=== PATIENT | female | born 1940 | race Caucasian/White ===

== ENCOUNTER 2017-06-16 09:46 | Inpatient (IN) ==
--- OUTSIDE RECORDS SUMMARY | 2017-06-16 10:04 | External Medical Summary ---
:1940 Author Organization [employer] Care Team Providers Name Role Phone Sarahy Garay Provider Role Unavailable Allergies No Known Allergies Problems Problem Type Condition Code Onset Dates Condition Status Problem Orthostatic hypotension I95.1 Active Problem Parkinson disease G20 Active Medications No Known Medications Results No Known Results Summary Purpose eClinicalWorks Submission
--- NOTE | 2017-06-16 10:09 | Emergency Department Report ---
Altered Mental Status HPI - General Chief Complaint: Altered Mental Status Stated Complaint: Altered LOC Time Seen by Provider: 06/16/17 09:57 Source: patient, EMS, RN notes reviewed, old records reviewed Mode of arrival: EMS Limitations: altered mental status - History of Present Illness HPI narrative: 77yo woman presented to the ER for evaluation of AMS. Pt was awake and alert but 'unresponsive' at her NH this AM during medication administration. EMS was called to transport pt for further evaluation. As soon as pt was loaded into the rig, pt opened her eyes and began to converse with the school nurse. Pt repeatedly states that she "does not have Parkinson's". She states that her main complaint today is nausea, which she attributes to being given Parkinson's meds in error. When questioned about her shaking, pt states that it is a side-effect of coming off of the Parkinson's medicine. MD complaint: altered mental status Onset (ago): minute(s) Timing confirmed by: caregiver Severity: severe Context: other (Dementia) Associated symptoms: nausea/vomiting - Related Data Home Medications Medication Instructions Recorded Confirmed Acetaminophen 650 mg PO Q4H PRN 06/16/17 06/16/17 Bisacodyl Supp [Dulcolax] 10 mg RECTALLY DAILY 06/16/17 06/16/17 Carbidopa/Levodopa 25/100 MG 2 tab PO 5XD 06/16/17 06/16/17 [Sinemet] Cholecalciferol (Vitamin D3) 1,000 unit PO DAILY 06/16/17 06/16/17 [Vitamin D3] Cholecalciferol (Vitamin D3) 2,000 mg PO DAILY 06/16/17 06/16/17 [Vitamin D3] Cyanocobalamin (Vitamin B-12) 500 mcg SL DAILY 06/16/17 06/16/17 [Vitamin B-12] Docusate Sodium [Colace] 100 mg PO BID PRN 06/16/17 06/16/17 Donepezil [Aricept] 5 mg PO DAILY 06/16/17 06/16/17 Escitalopram [Lexapro] 20 mg PO DAILY 06/16/17 06/16/17 Furosemide [Lasix 20 mg Tab] 20 mg PO DAILY 06/16/17 06/16/17 Guaifenesin Oral Liq [Robitussin] 100 mg PO Q4H PRN 06/16/17 06/16/17 LORazepam [Ativan] 0.5 mg PO TID 06/16/17 06/16/17 Levothyroxine Sodium 50 mcg PO DAILY 06/16/17 06/16/17 Mag Hydrox/Aluminum Hyd/Simeth 30 ml PO TID PRN 06/16/17 06/16/17 [Alum-Mag Hydroxide-Simeth Liq] Magnesium Hydroxide [Milk of 30 ml PO Q12H PRN 06/16/17 06/16/17 Magnesia] Midodrine [Proamatine] 10 mg PO TID 06/16/17 06/16/17 Peg 3350 238 G Bottle [Miralax] 17 gm PO DAILY PRN 06/16/17 06/16/17 Peg 3350 238 G Bottle [Miralax] 17 gm PO Q2D 06/16/17 06/16/17 Pimavanserin Tartrate [Nuplazid] 34 mg PO DAILY 06/16/17 06/16/17 Solifenacin Succinate [Vesicare] 5 mg PO DAILY 06/16/17 06/16/17 Trazodone HCl 75 mg PO HS 06/16/17 06/16/17 Allergies Allergy/AdvReac Type Severity Reaction Status Date / Time codeine Allergy Unknown Verified 06/16/17 10:20 mirtazapine [From Remeron] Allergy Unknown Verified 06/16/17 10:20 pramipexole [From Mirapex] Allergy Unknown Verified 06/16/17 10:20 Sulfa (Sulfonamide Allergy Unknown Verified 06/16/17 10:20 Antibiotics) Review of Systems All systems: reviewed and negative except as stated Gastrointestinal: Reports: as per HPI, nausea. Denies: abdominal pain, vomiting , diarrhea, constipation, hematemesis, melena, hematochezia PFS Patient Stated Medical History Paralysis Yes: agitans Parkinson's Disease Yes Cardiac Arrhythmia Yes: irregular heart beat Hypotension Yes Sleep Apnea No Depression Yes Clinic Medical History (Last Reviewed 08/31/16 @ 14:54 by KOLE Kwong) Parkinson's disease (Chronic Medical) Medical History Updates: Dementia Surgical History: Cholecystectomy. Hysterectomy. cataracts Family History: Family History (Last Reviewed 05/31/17 @ 13:20 by KOLE Kwong) Mother No problems noted. Father No problems noted. - Social History Smoking status: Never smoker second hand exposure: No Substance use type: does not use Alcohol intake frequency: does not drink Does patient use chewing tobacco?: No Physical Exam - Limitations Limitations: altered mental status - General General appearance: alert, in no apparent distress, obese - Head Head exam: atraumatic, normocephalic, normal inspection - Eye Eye exam: Present: normal appearance, PERRL, EOMI, other (Arcus senilis). Absent: scleral icterus - ENT ENT exam: Present: normal exam, normal oropharynx, mucous membranes moist, normal external ear exam - Neck Neck exam: Present: normal inspection, full ROM, trachea midline. Absent: tenderness, lymphadenopathy - Chest Chest inspection: Present: normal inspection, symmetric chest wall rise. Absent : tenderness, rash - Respiratory Respiratory exam: Present: normal lung sounds bilaterally. Absent: respiratory distress, wheezes, stridor, prolonged expiratory phase, crackles - Cardiovascular Cardiovascular exam: Present: regular rate, normal rhythm, normal heart sounds. Absent: rubs, gallop, clicks - Abdominal Exam Abdominal exam: Present: soft, normal bowel sounds. Absent: distention, tenderness, guarding, rebound, rigidity - Extremities Exam Extremities exam: Present: normal inspection, full ROM, normal capillary refill. Absent: tenderness, pedal edema - Skin Skin exam: Present: warm, dry, intact, other (AKs, Sebhorrheic keratoses). Absent: rash - Neurological Exam Neurological exam: Present: alert, CN II-XII intact, other (Constant, baseline tremor). Absent: oriented X3, normal gait, reflexes normal - Psychiatric Psychiatric exam: Present: agitated, flat affect Course - Consultations Consultation #1: [facility]: Will review pts chart and dx and determine whether pt is a good candidate for [facility]. After review, pt does meet criteria. However, DPOA is not interested in [facility]; did not listen to the screener/summarily hung up on her. Time: 12:17 Consultation #2: [facility] (DPSHANDA): After initially declining [facility] eval/placement, physician spoke with DPOA. He is well-aware of pts condition and has been very involved in pts care. He was under the impression that pts physicians were throwing meds at pt and unaware that Dr. Matta, as pts PCM, is/should be managing pts care. He wants all the relevant physicians to be speaking to each other. He wants Dr. Parker to see pt more frequently. After discussion regarding [facility], and reassuring him that it is not an inpt lock-down psych facility, he agrees to place pt in [facility] for acute med stabilization. Pt would like an update. Time: 12:50 Vital Signs Temperature 98.2 F 06/16/17 09:50 Pulse Rate 79 06/16/17 09:50 Respiratory Rate 19 06/16/17 09:50 Blood Pressure 161/67 H 06/16/17 09:50 Pulse Oximetry 93 06/16/17 09:50 Temperature 98.2 F 06/16/17 09:50 Pulse Rate 79 06/16/17 09:50 Respiratory Rate 19 06/16/17 09:50 Blood Pressure 161/67 H 06/16/17 09:50 Pulse Oximetry 93 06/16/17 09:50 Altered Mental Status - [facility] Narrative Medical decision making narrative: Pt with acute delusions regarding her Parkinson's; does not believe that she has it and thinks that her meds are poisoning her. After evaluation, [facility] was consulted for possible placement. DPOA is now in agreement with acute placement/stabilization. Will txfr pt to [facility]. - Differential Diagnosis Likely: altered mental status, delirium, dementia, hypoglycemia, hyponatremia - Medical Records Attestation: I reviewed the patient's medical records. - Lab Data Attestation: I reviewed the patient's lab results. Result diagrams: 06/16/17 10:15 06/18/17 07:03 - Radiology Data Attestation: I reviewed the patient's radiology results. CXR: IMPRESSION: No acute cardiopulmonary abnormality. Disposition Clinical Impression: Dementia Qualifiers: Dementia type: Parkinson's disease Dementia behavioral disturbance: with behavioral disturbance Qualified Code(s): G20 - Parkinson's disease Disposition: 64 To [facility] [place], operated by [facility] Condition: Stable Time of Disposition: 13:03 - Seen By: physician
--- NOTE | 2017-06-16 10:29 | XRay Report ---
Indication: 'AMS' PROCEDURE: XR chest 1V: Encounter: Initial Comparison: None FINDINGS: The lungs are clear. There is no abnormal airspace opacity, pleural effusion or pneumothorax identified. The heart size is at the limits of normal to mildly enlarged. The pulmonary vasculature and mediastinum are within normal limits. No significant skeletal abnormality is seen. IMPRESSION: No acute cardiopulmonary abnormality. .
[2017-06-16 14:27] VITALS: BMI 31.6
[2017-06-16] MEDS ORDERED: LORazepam 0.5 MG TABLET PO PRN (15:19)
[2017-06-16] MEDS ORDERED: ACETAMINOPHEN 325 MG TABLET PO PRN (15:21)
[2017-06-16] MEDS ORDERED: TRAZODONE 50 MG TABLET PO PRN (15:21)
[2017-06-16] MEDS ORDERED: POLYETHYL GLYCOL 3350 17gm PACKET PO PRN (15:21)
[2017-06-16] MEDS ORDERED: DOCUSATE SODIUM 100 MG CAPSULE PO PRN (15:21)
[2017-06-16] MEDS ORDERED: MAG-AL + SIM ORAL LIQUID 30ml PO PRN (16:53)
[2017-06-17] MEDS: LEVOTHYROXINE 50 MCG TABLET PO SCH ×2 (05:43→05:46)
[2017-06-17] MEDS ORDERED: PIMAVANSERIN TARTRATE 17 MG PO SCH (09:00)
[2017-06-17] MEDS: FUROSEMIDE 20 MG TABLET PO SCH (11:11)
[2017-06-17] MEDS: SOLIFENACIN 5mg TABLET PO SCH (11:11)
--- NOTE | 2017-06-17 11:28 | History & Physical Report ---
History of Present Illness Date: 06/17/17 Chief complaint: psychosis HPI: Lucia Joe is a 77-year-old female patient of Dr. Matta who currently resides at [facility] facility. Due to her dementia, she is a poor historian. The majority of the history is obtained from prior medical records, nursing notes, EMS records and ED records. It was reported that about 3 weeks ago she underwent some medication changes including the discontinuation of Seroquel with the initiation of Nuplazid. Since that time, penitentiary staff reports increased paranoia with visual hallucinations. She has been refusing to eat or take her medications as she believes the staff is trying to kill her and poison her. Yesterday morning, 06/16/17, the penitentiary staff found her awake but "unresponsive". EMS was dispatched to the penitentiary and determined she should have further evaluation. Upon loading her in the rig, she opened her eyes and began to converse with the legal examiner. She was brought to [facility] for further evaluation. Review of prior records indicates a history of frequent UTIs with the most recent being in 04/2017 which revealed pansensitive E. coli and was treated with amoxicillin 500mg BID. Labs in the ED revealed normal WBC with hypernatremia (Na 148) and mild hyperglycemia. TSH was slightly elevated at 5.12. UA and drug screen were both negative. Due to her psychosis with delusions and paranoia, she was [facility] for further [facility] evaluation and care. The hospitalist service was consulted for medical management. On exam, she is seen while sitting in the day room in a recliner. She states that she is "going into shock" and reports that she is allergic to ativan. Review of medical records indicates that she has previously been on ativan TID which has been decreased upon her admission. She denies any other specific complaints other than feeling hot. No chest pain, shortness of breath, abdominal pain, nausea, vomiting or dysuria. She can be redirected in conversation but ultimately complains of being in shock again and requesting to go to her room. She is breathing easily on room air and in no apparent distress. Review of Systems ROS unobtainable: due to mental status - Constitutional Constitutional: Present: weakness. Absent: chills, fever(s) - EENMT Eyes: Absent: loss of vision Nose: Absent: nosebleeds Mouth/Throat: Absent: sore throat - Cardiovascular Cardiovascular: Absent: chest pain, syncope Vascular: Absent: pallor of an extermity, pedal edema - Respiratory Respiratory: Absent: cough, dyspnea - Gastrointestinal Gastrointestinal: Present: constipation. Absent: abdominal pain, nausea, vomiting - Genitourinary Genitourinary: Absent: dysuria, flank pain - Musculoskeletal Musculoskeletal: Absent: back pain, deformity - Integumentary/Breasts Integumentary: Absent: rash - Neurological Neurological: Present: tremor(s), weakness - Psychiatric Psychiatric: Present: abnormal sleep pattern, behavioral changes, paranoia, visual hallucinations - Endocrine Endocrine: Absent: palpitations - Hematologic/Lymphatic Hematologic/Lymphatic: Absent: easy bruising Past Medical History Medical History Updates: Dementia. Parkinson's disease. Urinary incontinence. Generalized weakness. Chronic pain. Allergic rhinitis. Hypothyroidism. Hypotension. Major depressive disorder. Seborrheic dermatitis. Insomnia. Paralysis agitans. Surgical History: Cholecystectomy. Hysterectomy. Cataracts. Family History: Unable to obtain due to patient's dementia and poor historian. Family History: As Above - Social History Smoking status: Never smoker Substance use type: does not use Alcohol intake frequency: does not drink Housing: penitentiary Household members: none Current occupational status: retired Social history: PCP - Dr. Matta. Neuro - Dr. Parker. Medications Home Medications Medication Instructions Recorded Confirmed Type Acetaminophen 650 mg PO Q4H PRN 06/16/17 06/16/17 History Bisacodyl Supp [Dulcolax] 10 mg RECTALLY DAILY 06/16/17 06/16/17 History Carbidopa/Levodopa 25/100 MG 2 tab PO 5XD 06/16/17 06/16/17 History [Sinemet] Cholecalciferol (Vitamin D3) 1,000 unit PO DAILY 06/16/17 06/16/17 History [Vitamin D3] Cholecalciferol (Vitamin D3) 2,000 mg PO DAILY 06/16/17 06/16/17 History [Vitamin D3] Cyanocobalamin (Vitamin B-12) 500 mcg SL DAILY 06/16/17 06/16/17 History [Vitamin B-12] Docusate Sodium [Colace] 100 mg PO BID PRN 06/16/17 06/16/17 History Donepezil [Aricept] 5 mg PO DAILY 06/16/17 06/16/17 History Escitalopram [Lexapro] 20 mg PO DAILY 06/16/17 06/16/17 History Furosemide [Lasix 20 mg Tab] 20 mg PO DAILY 06/16/17 06/16/17 History Guaifenesin Oral Liq [Robitussin] 100 mg PO Q4H PRN 06/16/17 06/16/17 History LORazepam [Ativan] 0.5 mg PO TID 06/16/17 06/16/17 History Levothyroxine Sodium 50 mcg PO DAILY 06/16/17 06/16/17 History Mag Hydrox/Aluminum Hyd/Simeth 30 ml PO TID PRN 06/16/17 06/16/17 History [Alum-Mag Hydroxide-Simeth Liq] Magnesium Hydroxide [Milk of 30 ml PO Q12H PRN 06/16/17 06/16/17 History Magnesia] Midodrine [Proamatine] 10 mg PO TID 06/16/17 06/16/17 History Peg 3350 238 G Bottle [Miralax] 17 gm PO DAILY PRN 06/16/17 06/16/17 History Peg 3350 238 G Bottle [Miralax] 17 gm PO Q2D 06/16/17 06/16/17 History Pimavanserin Tartrate [Nuplazid] 34 mg PO DAILY 06/16/17 06/16/17 History Solifenacin Succinate [Vesicare] 5 mg PO DAILY 06/16/17 06/16/17 History Trazodone HCl 75 mg PO HS 06/16/17 06/16/17 History Allergies Allergy/AdvReac Type Severity Reaction Status Date / Time codeine Allergy Unknown Verified 06/16/17 10:20 mirtazapine [From Remeron] Allergy Unknown Verified 06/16/17 10:20 pramipexole [From Mirapex] Allergy Unknown Verified 06/16/17 10:20 Sulfa (Sulfonamide Allergy Unknown Verified 06/16/17 10:20 Antibiotics) Exam Vital Signs: Temperature 96.8 F 06/17/17 06:00 Pulse Rate 76 06/17/17 06:00 Respiratory Rate 16 06/17/17 06:00 Blood Pressure 147/69 H 06/17/17 06:00 Pulse Oximetry 93 06/17/17 06:00 Height/Weight/BMI: Height 5 ft 6 in Weight 195 lb 15.855 oz Body Mass Index 31.6 Comments: Sitting in recliner in day room. - Constitutional Present: no acute distress, well nourished, well developed, obese, cooperative, agitated - Routine HEENT Exam Head: Present: normocephalic, atraumatic Eye: Present: PERRL. Absent: conjunctival icterus ENT: Present: mucous membranes dry, oropharynx clear - Routine Neck Exam Present: supple, full ROM, trachea midline - Routine Chest/Breast/Axilla Exam Chest wall: Absent: pacemaker - Routine Respiratory Exam Present: CTA bilaterally. Absent: respiratory distress, wheezes - Routine Cardiovascular Exam Present: RRR, S1, S2 - Routine Abdominal Exam Present: soft, normoactive bowel sounds, non tender - Routine Extremities Exam Present: no edema, pulses intact - Routine Back/Spine/Pelvis Exam Back/Spine: Present: kyphosis. Absent: vertebral tenderness - Routine Skin Exam Present: intact, dry, warm Comments: Afebrile. - Routine Neurological Exam Present: alert, moving all extremities, hearing grossly intact, tremors - Routine Psychiatric Exam Present: visual hallucinations, cooperative, agitated, paranoid Results - Labs CBC & Chem 7: 06/16/17 10:15 06/16/17 10:15 Assessment and Plan Assessment and Plan: Assessment: Psychosis with acute delirium and paranoia. Hypernatremia, present on admission. Dementia. Parkinson's disease. Urinary incontinence. Generalized weakness. Chronic pain. Allergic rhinitis. Hypothyroidism. Hypotension. Major depressive disorder. Seborrheic dermatitis. Insomnia. Paralysis agitans. Plan - 06/17/17: Agree with [facility] to [facility] for further psychiatric care per Dr. Reed and team. Hospitalist service consulted for medical management. Provide safe and supportive environment. Evaluation in ED revealed hypernatremia (Na 148). Encourage oral intake. Will recheck on 06/18/17. Slightly elevated TSH at 5.12. Possibly due to patient refusing meds. Recommend continuing to monitor as outpatient with recheck in 4-6 weeks. Continue home Synthroid. Continue home medications. Monitor blood pressure closely. Recheck labs periodically throughout admission to monitor blood counts, electrolytes and renal function. Upon discharge, patient's care will be returned to her PCP, Dr. Matta. Patient is a DNR code. Resuscitation Status: Do Not Resuscitate - Time spent with patient Time with patient PN: 50 minutes - Physician Narrative Physician: Chintan Abraham MD Narrative: Date: 06/17/17 Time: 1119 Have independently interviewed and examined pt. Chart reviewed. Case discussed with my PA. Above care plan developed with my supervision; agree with above note. Admitted to [facility] secondary to increasing paranoia. Resting in bed. Paranoid about my visit. Resistive to engage in conversation. Reports feels miserable. Lungs: decreased, no distress CV: regular MSE: awake, paranoid and apprehensive Plan: Agree with admission of patient to [facility] for intensive inpatient psychiatric treatment of her psychosis. Psychiatry to manage and adjust psychoactive medications. Continue with chronic medical medications from outpatient setting. Provide safe supportive environment for patient. Avoid antihypertensive so as not to exacerbate her hypotension. Medically stable for [facility] [place] floor activities. Hospital Course Summary Disclaimer: The visit summary below is not to be considered part of the above Progress Note. Hospital Course: Plan - 06/17/17: Agree with admission to [facility] unit for further psychiatric care per Dr. Reed and team. Hospitalist service consulted for medical management. Provide safe and supportive environment. Evaluation in ED revealed hypernatremia (Na 148). Encourage oral intake. Will recheck on 06/18/17. Slightly elevated TSH at 5.12. Possibly due to patient refusing meds. Recommend continuing to monitor as outpatient with recheck in 4-6 weeks. Continue home Synthroid. Continue home medications. Monitor blood pressure closely. Recheck labs periodically throughout admission to monitor blood counts, electrolytes and renal function. Upon discharge, patient's care will be returned to her PCP, Dr. Matta. Patient is a DNR code.
[2017-06-17] MEDS: BISACODYL 10 MG SUPPOSITORY RECTALLY SCH (17:20)
--- NOTE | 2017-06-17 18:30 | 24 Hour Neuropsychiatic Eval ---
Date of Admission: 06/16/17 13:36 Chief complaint: "I'm not sure" History of Present Illness: Patient is a 77-year-old female who was admitted to [facility] on 06/16/17 for psychiatric evaluation and stabilization due to increasing behaviors at her care facility including increasing paranoia to the point that she has been refusing to eat and take medications for several days. Patient was recently switched from Seroquel to Nuplazid for treatment of Parkinson's psychosis (~3 weeks ago). Symptoms have increased since that time. GA also reported patient having VH. The day prior to admit, patient appeared "unresponsive" to [facility] staff, who called EMS. Patient then began interacting with supervisor of guidance and testing. Per hospitalist: "Review of prior records indicates a history of frequent UTIs with the most recent being in 04/2017 which revealed pansensitive E. coli and was treated with amoxicillin 500mg BID. Labs in the ED revealed normal WBC with hypernatremia (Na 148) and mild hyperglycemia. TSH was slightly elevated at 5.12. UA and drug screen were both negative. On exam, she is seen while sitting in the day room in a recliner. She states that she is "going into shock " and reports that she is allergic to ativan. Review of medical records indicates that she has previously been on ativan TID which has been decreased upon her admission. She denies any other specific complaints other than feeling hot. No chest pain, shortness of breath, abdominal pain, nausea, vomiting or dysuria. She can be redirected in conversation but ultimately complains of being in shock again and requesting to go to her room. She is breathing easily on room air and in no apparent distress." Patient is initially seen in dayroom but soon requests to go back to her room. She did spend the majority of the AM in the dayroom per nursing request. Patient has a significant tremor in all extremities due to Parkinson's, and masked facies. She has significant thought delay and thus interview is difficult. She is minimally cooperative and frequently states "I don't know" though it is not clear whether this is due to dementia or being guarded. She does say that she "seems to be allergic to Ativan" and that "it makes her throw up." Patient was on scheduled Ativan which was held on admission as it was reported that she was not taking her medications. Patient is oriented to person , date, location. She describes her mood as "mariaa down." She is not able to tell me about any other psychiatric symptoms ("I don't know/remember") but she does deny SI ("That's God's duty") and HI. [facility] Patient Stated Medical History Paralysis Yes: agitans Parkinson's Disease Yes Cardiac Arrhythmia Yes: irregular heart beat Hypotension Yes Sleep Apnea No Depression Yes Medical History Updates: Dementia. Parkinson's disease. Urinary incontinence. Generalized weakness. Chronic pain. Allergic rhinitis. Hypothyroidism. Hypotension. Major depressive disorder. Seborrheic dermatitis. Insomnia. Paralysis agitans. Surgical History: Cholecystectomy. Hysterectomy. Cataracts. Family History: Family History (Last Reviewed 05/31/17 @ 13:20 by Anuja Lutz [place]) Mother No problems noted. Father No problems noted. Unable to obtain family hx from patient. - Social History Smoking status: Never smoker second hand exposure: No Substance use type: does not use Alcohol intake frequency: does not drink Housing: alf Household members: none Current occupational status: retired Does patient use chewing tobacco?: No Social history: Strengths: Has placement, DPOA, able to verbalize needs. Review of Systems ROS unobtainable: due to mental status - EENMT Nose: Absent: nosebleeds Mouth/Throat: Absent: sore throat - Cardiovascular Vascular: Absent: pallor of an extermity, pedal edema Mental Status Exam Vitals: Last Vital Signs Temp 96.6 F L 06/17/17 14:00 Pulse 63 06/17/17 14:00 Resp 16 06/17/17 14:00 BP 127/69 06/17/17 14:00 Pulse Ox 96 06/17/17 14:00 Height: 1.68 m Weight: 88.9 kg - Mental Status Exam Muscle Strength/Tone: Other (Parkinsonian) Dressing: Casual Grooming: Fair Attitude: Guarded, Suspicious Motor Activity: Retardation, Tremors (in all extremities) Eye Contact: Poor Speech: Slowed Volume: Soft Rhythm: Mumbled, Paucity of Language Sensory: Alert Orientation: Disoriented to situation, Oriented to person, Oriented to place, Oriented to time Mood: Other ("Mariaa down") Affect: Blunted (likely has masked facies d/t Parkinson's) Rate of Thoughts: Delayed Thought Organization: Blocking (possible), [place], Other (Significant thought latency) Associations: Illogical Abstract Reasoning: Poor abstract reasoning Thought Content: Delusions, Helplessness, Paranoia (per nursing staff), Somatic Concerns Perception/Psychotic: Psychotic (VH reported by [facility]) Language: Other (Unclear) Fund of Knowledge: Other (Believed to be decreased from baseline, unable to fully assess) Memory: Poor-recent Suicidal Ideation: Denies (though exhibiting self-harming behaviors by refusing PO intake) Homicidal Ideation: Denies Insight: Impaired Judgement: Impaired Impulse Control: Poor - Laboratory Result Diagrams: 06/16/17 10:15 06/16/17 10:15 Assessment and Plan (1) Psychosis due to Parkinson's disease Problem details: R/O MDD, severe, with psychotic features R/O Parkinson's dementia or other MNCD Current visit: Yes Status: Acute (2) Parkinson's disease Current visit: No Status: Chronic (3) Catatonia Current visit: Yes Status: Acute Agree with admission to [facility] for psychiatric evaluation and stabilization. Maintain safety and elopement precautions. Standard labs on admission: CBC, CMP, TSH, UA, Vitamin B12 and folate. Have consulted hospitalist for optimization of medical comorbidities. Will obtain further collateral from NH facility, family/support. For now, will restart patient's home med Nuplazid at 17mg daily as patient has not been taking this medication consistently. Will also schedule Seroquel 12.5mg PO BID and monitor response. Will schedule Ativan 0.5mg PO BID to address catatonic symptoms and carefully monitor PO intake. If patient is adherent with meds, may need to address depression as well.
[2017-06-17] MEDS: LORazepam 0.5 MG TABLET PO SCH ×2 (21:50→22:33)
[2017-06-17] MEDS: QUETIAPINE 200 MG TABLET PO SCH ×2 (21:52→22:33)
[2017-06-18] MEDS: LEVOTHYROXINE 50 MCG TABLET PO SCH ×2 (07:31→07:39)
[2017-06-18] MEDS ORDERED: NUPLAZID 17 MG PO SCH (09:00)
[2017-06-18] MEDS: SOLIFENACIN 5mg TABLET PO SCH ×2 (11:55→13:29)
[2017-06-18] MEDS: BISACODYL 10 MG SUPPOSITORY RECTALLY SCH (11:56)
[2017-06-18] MEDS: FUROSEMIDE 20 MG TABLET PO SCH ×2 (11:56→13:29)
[2017-06-18] MEDS: LORazepam 0.5 MG TABLET PO SCH ×3 (12:05→15:09)
[2017-06-18] MEDS: QUETIAPINE 25 MG TABLET PO SCH ×2 (12:06→13:27)
--- NOTE | 2017-06-18 15:42 | Neuropsych Progress Note ---
[facility] Subjective Date: 06/18/17 - Sujective/Severity of Illness Medications: Acetaminophen (Tylenol) 650 mg PO Q4H PRN PRN Reason: Pain Last Admin: 06/17/17 02:16 Dose: 650 mg Al Hydroxide/Mg Hydroxide (Maalox Plus) 30 ml PO TID PRN PRN Reason: Indigestion Bisacodyl (Dulcolax) 10 mg RECTALLY DAILY [facility] Last Admin: 06/18/17 11:56 Dose: Not Given Docusate Sodium (Colace) 100 mg PO BID PRN PRN Reason: Constipation Furosemide (Lasix 20 Mg Tab) 20 mg PO DAILY [facility] Last Admin: 06/18/17 13:29 Dose: Not Given Levothyroxine Sodium (Synthroid) 50 mcg PO ACB [facility] Last Admin: 06/18/17 07:39 Dose: Not Given Lorazepam (Ativan) 0.5 mg PO Q6H PRN PRN Reason: Extreme agitation Last Admin: 06/17/17 02:16 Dose: 0.5 mg Lorazepam (Ativan Inj) 0.5 mg IM Q6H PRN PRN Reason: Extreme agitation Lorazepam (Ativan) 0.5 mg PO TID [facility] Last Admin: 06/18/17 15:09 Dose: Not Given Magnesium Hydroxide (Mom) 30 ml PO Q12H PRN PRN Reason: Constipation Pom-Nuplazid ( Pimavanserin) 17 Mg Tablet 1 each PO DAILY [facility] Last Admin: 06/18/17 13:26 Dose: Not Given Polyethylene Glycol (Miralax) 17 gm PO DAILY PRN PRN Reason: Constipation Quetiapine Fumarate (Seroquel) 12.5 mg PO BID [facility] Last Admin: 06/18/17 13:27 Dose: Not Given Solifenacin (Vesicare) 5 mg PO DAILY [facility] Last Admin: 06/18/17 13:29 Dose: Not Given Trazodone HCl (Desyrel) 75 mg PO HS PRN PRN Reason: Insomnia Subjective: Patient seen and chart reviewed. Case discussed with treatment team. On interview, patient is sitting in chair in dayroom. She has been waiting to speak with the doctor but doesn't make much logical sense. She perseverates on the phrase, "I'm a serotonin patient." When asked what that means, she states, "I need slow sips of water." She does not answer other interview questions. Patient has been taking sips of water but refusing mood and most medications. She continues to appear catatonic. Patient has not had any overt aggression. Patient slept 4.5 hours overnight. VSS. Psychotropic PRNs required in the past 24 hours: none. I spoke with son/DPSHANDA Shaver re: patient care. He initially said, "My mom can't be not taking medications because the nurses at [facility] were supposed to be giving them to her." Clarified with him that she is refusing food and most medications. He is aware that patient has been psychotic and states Dr. Coelho had recently started Nuplazid. Discussed symptoms of catatonia and concern for nutrition as she is refusing PO. Agreed to offer PO Ativan TID and administer IM if she refuses. Once catatonia remits, will focus on PO intake and starting antipsychotic (will not respond well to IM antipsychotics due to severe Parkinson's). Discussed continuing Seroquel/Nuplazid vs. clozaril and he agreed to trial of clozaril starting tonight. Discussed risks/benefits; obtained informed consent. Start Time: 13:00 Stop Time: 13:40 Care: >50% of this visit spent in counseling/coordination care. (discussion of care with son/DPOA) Mental Status Exam Vitals: Last Vital Signs Temp 98.4 F 06/18/17 00:01 Pulse 74 06/18/17 08:00 Resp 20 06/18/17 08:00 BP 148/102 H 06/18/17 08:00 Pulse Ox 96 06/18/17 08:00 Height: 1.68 m Weight: 88.9 kg - Mental Status Exam Muscle Strength/Tone: Rigid, Other (Parkinsonian) Dressing: Casual Grooming: Fair Attitude: Guarded, Suspicious Motor Activity: Retardation, Tremors (in all extremities), Catatonic Eye Contact: Poor Speech: Slowed Volume: Soft Rhythm: Mumbled, Perseveration Orientation: Disoriented to situation, Oriented to person, Oriented to place, Oriented to time Mood: Other ("Mary down") Rate of Thoughts: Delayed Thought Organization: Perseverations, Blocking (possible), [place], Other ( Significant thought latency) Associations: Illogical Abstract Reasoning: Impaired, concrete Thought Content: Delusions, Helplessness, Paranoia (per nursing staff), Somatic Concerns Perception/Psychotic: Psychotic (VH reported by [facility]) Language: Other (Unclear) Fund of Knowledge: Other (Believed to be decreased from baseline, unable to fully assess) Memory: Poor-immediate, Poor-recent Suicidal Ideation: None Homicidal Ideation: None Insight: Impaired Judgement: Impaired Impulse Control: Poor - Laboratory Result Diagrams: 06/16/17 10:15 06/18/17 07:03 Laboratory Results - last 24 hr 06/18/17 06/18/17 07:03 07:03 Turbidity < 20 Sodium 147 H Potassium 4.3 Chloride 110 H Carbon Dioxide 24 Anion Gap 13 BUN 30.0 H Creatinine 1.1 GFR Calculation 48 BUN/Creatinine Ratio 27 H Glucose 100 Hemoglobin A1c 5.6 Calculated Osmolality 288 H Calcium 10.2 Icterus Index < 2 Triglycerides 90 Cholesterol 229 H LDL Cholesterol, Calc 149.0 VLDL Cholesterol 18.0 HDL Cholesterol 62 H Cholesterol/HDL Ratio 3.7 Specimen Hemolysis < 15 Assessment and Plan (1) Psychosis due to Parkinson's disease Problem details: R/O MDD, severe, with psychotic features R/O Parkinson's dementia or other MNCD Current visit: Yes Status: Acute (2) Parkinson's disease Current visit: No Status: Chronic (3) Catatonia Current visit: Yes Status: Acute Agreed upon following plan with son/DPOA: Restart Ativan 1mg PO TID for catatonia. If patient refuses PO, to be given IM. Encourage PO nutrition. Will start clozapine 25mg PO q HS. Will order EKG as well. Hospital Course Summary Disclaimer: The visit summary below is not to be considered part of the above Progress Note. Hospital Course: Plan - 06/17/17: [facility] for further psychiatric care per Dr. Reed and team. Hospitalist service consulted for medical management. Provide safe and supportive environment. Evaluation in ED revealed hypernatremia (Na 148). Encourage oral intake. Will recheck on 06/18/17. Slightly elevated TSH at 5.12. Possibly due to patient refusing meds. Recommend continuing to monitor as outpatient with recheck in 4-6 weeks. Continue home Synthroid. Continue home medications. Monitor blood pressure closely. Recheck labs periodically throughout admission to monitor blood counts, electrolytes and renal function. Upon discharge, patient's care will be returned to her PCP, Dr. Matta. Patient is a DNR code. 06/18/17 Psych: Agreed upon following plan with son/DPOA: Discontinue home Seroquel, Nuplazid. Restart Ativan 1mg PO TID for catatonia. If patient refuses PO, to be given IM. Encourage PO nutrition. Will start clozapine 25mg PO q HS. Will order EKG as well.
[2017-06-18] MEDS ORDERED: LORazepam 0.5 MG TABLET PO SCH (16:39)
[2017-06-18] MEDS: CloZAPine 25 MG TABLET PO SCH (17:15)
[2017-06-18] MEDS ORDERED: LORazepam 1 MG TABLET PO ONE (18:15)
[2017-06-18] MEDS: LORazepam 1 MG TABLET PO SCH (20:38)
[2017-06-19] MEDS: CloZAPine 25 MG TABLET PO SCH ×2 (00:08→20:49)
[2017-06-19] MEDS: LEVOTHYROXINE 50 MCG TABLET PO SCH (07:42)
[2017-06-19] MEDS: BISACODYL 10 MG SUPPOSITORY RECTALLY SCH (16:00)
[2017-06-19] MEDS: FUROSEMIDE 20 MG TABLET PO SCH (16:00)
[2017-06-19] MEDS: LORazepam 1 MG TABLET PO SCH ×4 (16:01→22:41)
[2017-06-19] MEDS: SOLIFENACIN 5mg TABLET PO SCH (16:02)
--- NOTE | 2017-06-19 16:13 | Neuropsych Progress Note ---
[facility] Subjective Date: 06/19/17 - Sujective/Severity of Illness Medications: Acetaminophen (Tylenol) 650 mg PO Q4H PRN PRN Reason: Pain Last Admin: 06/17/17 02:16 Dose: 650 mg Al Hydroxide/Mg Hydroxide (Maalox Plus) 30 ml PO TID PRN PRN Reason: Indigestion Bisacodyl (Dulcolax) 10 mg RECTALLY DAILY [facility] Last Admin: 06/19/17 16:00 Dose: Not Given Clozapine (Clozaril) 25 mg PO HS [facility] Last Admin: 06/19/17 00:08 Dose: Not Given Docusate Sodium (Colace) 100 mg PO BID PRN PRN Reason: Constipation Furosemide (Lasix 20 Mg Tab) 20 mg PO DAILY [facility] Last Admin: 06/19/17 16:00 Dose: Not Given Levothyroxine Sodium (Synthroid) 50 mcg PO ACB [facility] Last Admin: 06/19/17 07:42 Dose: Not Given Lorazepam (Ativan) 0.5 mg PO Q6H PRN PRN Reason: Extreme agitation Last Admin: 06/17/17 02:16 Dose: 0.5 mg Lorazepam (Ativan Inj) 0.5 mg IM Q6H PRN PRN Reason: Extreme agitation Lorazepam (Ativan) 1 mg PO TID [facility] Last Admin: 06/19/17 16:02 Dose: Not Given Lorazepam (Ativan Inj) 1 mg IM TID PRN Magnesium Hydroxide (Mom) 30 ml PO Q12H PRN PRN Reason: Constipation Polyethylene Glycol (Miralax) 17 gm PO DAILY PRN PRN Reason: Constipation Solifenacin (Vesicare) 5 mg PO DAILY [facility] Last Admin: 06/19/17 16:02 Dose: Not Given Subjective: Patient seen and chart reviewed. Nursing reports pt is doing well. Hypersomnolent and some what withdrawn. On face to face the pt is resting in bed. She states she is sleepy and does not want to talk. She denies any pain and voices no concerns at this time. Tolerating meds Start Time: 10:00 Stop Time: 10:15 Mental Status Exam Vitals: Last Vital Signs Temp 97.6 F 06/19/17 11:00 Pulse 63 06/19/17 11:00 Resp 16 06/19/17 16:02 BP 133/76 06/19/17 11:00 Pulse Ox 98 06/19/17 11:00 Height: 1.68 m Weight: 88.9 kg - Mental Status Exam Muscle Strength/Tone: Rigid, Other (Parkinsonian) Dressing: Casual Grooming: Fair Attitude: Guarded, Suspicious Motor Activity: Retardation, Tremors (in all extremities), Catatonic Eye Contact: Poor Speech: Slowed Volume: Soft Rhythm: Mumbled, Perseveration Orientation: Disoriented to situation, Oriented to person, Oriented to place, Oriented to time Mood: Other ("Mary down") Rate of Thoughts: Delayed Thought Organization: Perseverations, Blocking (possible), [place], Other ( Significant thought latency) Associations: Illogical Abstract Reasoning: Impaired, concrete Thought Content: Delusions, Helplessness, Paranoia (per nursing staff), Somatic Concerns Perception/Psychotic: Psychotic (VH reported by NH) Language: Other (Unclear) Fund of Knowledge: Other (Believed to be decreased from baseline, unable to fully assess) Memory: Poor-immediate, Poor-recent Suicidal Ideation: None Homicidal Ideation: None Insight: Impaired Judgement: Impaired Impulse Control: Poor - Laboratory Result Diagrams: 06/16/17 10:15 06/18/17 07:03 Assessment and Plan (1) Parkinson's disease Current visit: No Status: Chronic (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 Hospital Course: Plan - 06/17/17: [facility] with [facility] for further psychiatric care per Dr. Reed and team. Hospitalist service consulted for medical management. Provide safe and supportive environment. Evaluation in ED revealed hypernatremia (Na 148). Encourage oral intake. Will recheck on 06/18/17. Slightly elevated TSH at 5.12. Possibly due to patient refusing meds. Recommend continuing to monitor as outpatient with recheck in 4-6 weeks. Continue home Synthroid. Continue home medications. Monitor blood pressure closely. Recheck labs periodically throughout admission to monitor blood counts, electrolytes and renal function. Upon discharge, patient's care will be returned to her PCP, Dr. Matta. Patient is a DNR code. 06/18/17 Psych: Agreed upon following plan with son/DPOA: Discontinue home Seroquel, Nuplazid. Restart Ativan 1mg PO TID for catatonia. If patient refuses PO, to be given IM. Encourage PO nutrition. Will start clozapine 25mg PO q HS. Will order EKG as well. 06/19/17 Psych- Tolerating meds. Continue current care
--- NOTE | 2017-06-19 18:57 | Progress Note ---
- Date 06/19/17 Subjective: Mrs. Penaloza was seen briefly in the day room. She was sleeping soundly and did not awaken to exam or voice. Nursing reports her level of consciousness has been impaired and she is not eating well. She choked once earlier today and staff is reluctant to allow her to take anything orally at this time. Patient has refused medications 1 awake earlier today but reported to of slept well last night. 133/76, 98% on room air, 97.6 NAD, respirations nonlabored Breath sounds clear anteriorly Regular rhythm, low-grade tachycardia Abdomen benign Coarse tremors 4 extremities Sodium 147 yesterday, BUN slightly elevated at 30 (148/27 respectively on admission) Parkinson's disease with dementia Psychosis Depression Hypernatremia Dysphasia Will reassess tomorrow-may benefit from IV fluids if remains lethargic and with minimal oral intake. Suspect slightly dehydrated. Consider speech therapy evaluation early in the week-dysphasia common in patients with Parkinson's disease. May benefit from neurology consultation to consider topical forms of treatment if oral intake inconsistent. Objective Vital signs: Temperature 97.6 F 06/19/17 11:00 Pulse Rate 63 06/19/17 11:00 Respiratory Rate 16 06/19/17 16:02 Blood Pressure 133/76 06/19/17 11:00 Pulse Oximetry 98 06/19/17 11:00 Height/Weight/BMI: Height 1.68 m Weight 88.9 kg Body Mass Index 31.6 Results - Labs CBC & Chem 7: 06/16/17 10:15 06/18/17 07:03 Assessment and Plan Assessment and Plan: Assessment: Psychosis with acute delirium and paranoia. Hypernatremia, present on admission. Dementia. Parkinson's disease. Urinary incontinence. Generalized weakness. Chronic pain. Allergic rhinitis. Hypothyroidism. Hypotension. Major depressive disorder. Seborrheic dermatitis. Insomnia. Paralysis agitans. Plan - 06/17/17: [facility] with [facility] for further psychiatric care per Dr. Reed and team. Hospitalist service consulted for medical management. Provide safe and supportive environment. Evaluation in ED revealed hypernatremia (Na 148). Encourage oral intake. Will recheck on 06/18/17. Slightly elevated TSH at 5.12. Possibly due to patient refusing meds. Recommend continuing to monitor as outpatient with recheck in 4-6 weeks. Continue home Synthroid. Continue home medications. Monitor blood pressure closely. Recheck labs periodically throughout admission to monitor blood counts, electrolytes and renal function. Upon discharge, patient's care will be returned to her PCP, Dr. Matta. Patient is a DNR code. - Physician Narrative Narrative: Date: 06/19/17 Time: 1848 Hospital Course Summary Disclaimer: The visit summary below is not to be considered part of the above Progress Note. Hospital Course: Plan - 06/17/17: Agree with [facility] for further psychiatric care per Dr. Reed and team. Hospitalist service consulted for medical management. Provide safe and supportive environment. Evaluation in ED revealed hypernatremia (Na 148). Encourage oral intake. Will recheck on 06/18/17. Slightly elevated TSH at 5.12. Possibly due to patient refusing meds. Recommend continuing to monitor as outpatient with recheck in 4-6 weeks. Continue home Synthroid. Continue home medications. Monitor blood pressure closely. Recheck labs periodically throughout admission to monitor blood counts, electrolytes and renal function. Upon discharge, patient's care will be returned to her PCP, Dr. Matta. Patient is a DNR code. 06/18/17 Psych: Agreed upon following plan with son/DPOA: Discontinue home Seroquel, Nuplazid. Restart Ativan 1mg PO TID for catatonia. If patient refuses PO, to be given IM. Encourage PO nutrition. Will start clozapine 25mg PO q HS. Will order EKG as well. 06/19/17 Psych- Tolerating meds. Continue current care
[2017-06-20] MEDS: LEVOTHYROXINE 50 MCG TABLET PO SCH (06:07)
[2017-06-20] MEDS: FUROSEMIDE 20 MG TABLET PO SCH ×2 (10:47→10:54)
[2017-06-20] MEDS: LORazepam 1 MG TABLET PO SCH ×4 (10:47→21:16)
[2017-06-20] MEDS: SOLIFENACIN 5mg TABLET PO SCH ×2 (10:47→10:54)
--- NOTE | 2017-06-20 11:01 | Neuropsych Progress Note ---
[facility] Subjective Date: 06/20/17 - Sujective/Severity of Illness Medications: Acetaminophen (Tylenol) 650 mg PO Q4H PRN PRN Reason: Pain Last Admin: 06/17/17 02:16 Dose: 650 mg Al Hydroxide/Mg Hydroxide (Maalox Plus) 30 ml PO TID PRN PRN Reason: Indigestion Bisacodyl (Dulcolax) 10 mg RECTALLY DAILY [facility] Last Admin: 06/19/17 16:00 Dose: Not Given Clozapine (Clozaril) 25 mg PO HS [facility] Last Admin: 06/19/17 20:49 Dose: Not Given Docusate Sodium (Colace) 100 mg PO BID PRN PRN Reason: Constipation Furosemide (Lasix 20 Mg Tab) 20 mg PO DAILY [facility] Last Admin: 06/20/17 10:54 Dose: Not Given Levothyroxine Sodium (Synthroid) 50 mcg PO ACB [facility] Last Admin: 06/20/17 06:07 Dose: 50 mcg Lorazepam (Ativan) 0.5 mg PO Q6H PRN PRN Reason: Extreme agitation Last Admin: 06/17/17 02:16 Dose: 0.5 mg Lorazepam (Ativan Inj) 0.5 mg IM Q6H PRN PRN Reason: Extreme agitation Lorazepam (Ativan) 1 mg PO TID [facility] Last Admin: 06/20/17 10:54 Dose: Not Given Lorazepam (Ativan Inj) 1 mg IM TID PRN Magnesium Hydroxide (Mom) 30 ml PO Q12H PRN PRN Reason: Constipation Polyethylene Glycol (Miralax) 17 gm PO DAILY PRN PRN Reason: Constipation Solifenacin (Vesicare) 5 mg PO DAILY [facility] Last Admin: 06/20/17 10:54 Dose: Not Given Subjective: Patient seen and chart reviewed. Nursing reports pt remains hypersomnolent and is not talking. Pt is refusing meds. On face to face the pt is seen in bed. She is hypersomnolent and does not talk. She will follow some basic commands. Start Time: 09:00 Stop Time: 09:15 Mental Status Exam Vitals: Last Vital Signs Temp 97.8 F 06/19/17 19:00 Pulse 76 06/19/17 22:40 Resp 16 06/19/17 23:45 BP 136/62 06/19/17 22:40 Pulse Ox 97 06/19/17 22:40 Height: 1.68 m Weight: 88.9 kg - Mental Status Exam Muscle Strength/Tone: Rigid, Other (Parkinsonian) Dressing: Casual Grooming: Fair Attitude: Guarded, Suspicious Motor Activity: Retardation, Tremors (in all extremities), Catatonic Eye Contact: Poor Speech: Slowed Volume: Soft Rhythm: Mumbled, Perseveration Orientation: Disoriented to situation, Oriented to person, Oriented to place, Oriented to time Mood: Other ("Mary down") Rate of Thoughts: Delayed Thought Organization: Perseverations, Blocking (possible), [place], Other ( Significant thought latency) Associations: Illogical Abstract Reasoning: Impaired, concrete Thought Content: Delusions, Helplessness, Paranoia (per nursing staff), Somatic Concerns Perception/Psychotic: Psychotic (VH reported by NH) Language: Other (Unclear) Fund of Knowledge: Other (Believed to be decreased from baseline, unable to fully assess) Memory: Poor-immediate, Poor-recent Suicidal Ideation: None Homicidal Ideation: None Insight: Impaired Judgement: Impaired Impulse Control: Poor - Laboratory Result Diagrams: 06/16/17 10:15 06/18/17 07:03 Assessment and Plan (1) Parkinson's disease Current visit: No Status: Chronic (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 Hospital Course: Plan - 06/17/17: Agree with admission to [facility] for further psychiatric care per Dr. Reed and team. Hospitalist service consulted for medical management. Provide safe and supportive environment. Evaluation in ED revealed hypernatremia (Na 148). Encourage oral intake. Will recheck on 06/18/17. Slightly elevated TSH at 5.12. Possibly due to patient refusing meds. Recommend continuing to monitor as outpatient with recheck in 4-6 weeks. Continue home Synthroid. Continue home medications. Monitor blood pressure closely. Recheck labs periodically throughout admission to monitor blood counts, electrolytes and renal function. Upon discharge, patient's care will be returned to her PCP, Dr. Matta. Patient is a DNR code. 06/18/17 Psych: Agreed upon following plan with son/DPOA: Discontinue home Seroquel, Nuplazid. Restart Ativan 1mg PO TID for catatonia. If patient refuses PO, to be given IM. Encourage PO nutrition. Will start clozapine 25mg PO q HS. Will order EKG as well. 06/19/17 Psych- Tolerating meds. Continue current care 06/20/17 Psych- Pt remains hypersomnolent and non verbal. Refusing meds
[2017-06-20] MEDS: BISACODYL 10 MG SUPPOSITORY RECTALLY SCH (11:27)
--- NOTE | 2017-06-20 16:25 | Progress Note ---
- Date 06/20/17 Subjective: Lucia is seen in follow up. She is up in chair. Main c/o are a runny nose and she wants to go back to bed. She does have an obvious tremor, primarily right sided. No other acute c/o reported. Nursing staff is charting malodorous urine for the last few urine samples. Objective Vital signs: Temperature 97.3 F 06/20/17 16:03 Pulse Rate 90 06/20/17 16:03 Respiratory Rate 16 06/20/17 16:03 Blood Pressure 132/71 06/20/17 16:03 Pulse Oximetry 95 06/20/17 16:03 Height/Weight/BMI: Height 1.68 m Weight 88.9 kg Body Mass Index 31.6 - Constitutional Present: obese, disheveled, cooperative - Routine HEENT Exam Head: Present: normocephalic, atraumatic Eye: Present: EOMI, PERRL ENT: Present: mucous membranes moist - Routine Respiratory Exam Present: decreased breath sounds. Absent: rales, rhonchi, wheezes, crackles - Routine Cardiovascular Exam Present: RRR, S1, S2 - Routine Abdominal Exam Present: soft, normoactive bowel sounds, non distended, non tender - Routine Extremities Exam Present: edema (Mild, chronic) - Routine Musculoskeletal Exam Musculoskeletal: Present: limited range of motion. Absent: normal strength - Routine Skin Exam Present: intact, dry, warm - Routine Neurological Exam Present: alert, tremors (Significant, primarily left sided tremors. ) - Routine Psychiatric Exam Present: cooperative, anxious Results - Labs CBC & Chem 7: 06/16/17 10:15 06/18/17 07:03 Assessment and Plan Assessment and Plan: Assessment: Psychosis with acute delirium and paranoia. Hypernatremia, present on admission. Dementia. Parkinson's disease. Urinary incontinence. Generalized weakness. Chronic pain. Allergic rhinitis. Hypothyroidism. Hypotension. Major depressive disorder. Seborrheic dermatitis. Insomnia. Paralysis agitans. Plan - 06/20/17: Patient continues to appear a bit dehydrated on labs. Will repeat labs in AM. May need some IVF. Hold Lasix for now. Fairly severe chronic tremor notes. She is c/o a runny nose, but does not appear ill. Malodorous urine is reported. Repeat UA. Will need repeat TSH as an outpt. Resuscitation Status: Do Not Resuscitate - Physician Narrative Narrative: Date: 06/20/17 Time: 1621 Hospital Course Summary Disclaimer: The visit summary below is not to be considered part of the above Progress Note. Hospital Course: Plan - 06/17/17: Agree with admission to [facility] for further psychiatric care per Dr. Reed and team. Hospitalist service consulted for medical management. Provide safe and supportive environment. Evaluation in ED revealed hypernatremia (Na 148). Encourage oral intake. Will recheck on 06/18/17. Slightly elevated TSH at 5.12. Possibly due to patient refusing meds. Recommend continuing to monitor as outpatient with recheck in 4-6 weeks. Continue home Synthroid. Continue home medications. Monitor blood pressure closely. Recheck labs periodically throughout admission to monitor blood counts, electrolytes and renal function. Upon discharge, patient's care will be returned to her PCP, Dr. Matta. Patient is a DNR code. 06/18/17 Psych: Agreed upon following plan with son/DPOA: Discontinue home Seroquel, Nuplazid. Restart Ativan 1mg PO TID for catatonia. If patient refuses PO, to be given IM. Encourage PO nutrition. Will start clozapine 25mg PO q HS. Will order EKG as well. 06/19/17 Psych- Tolerating meds. Continue current care 06/20/17 Psych- Pt remains hypersomnolent and non verbal. Refusing meds 06/20/17: Patient continues to appear a bit dehydrated on labs. Will repeat labs in AM. May need some IVF. Hold Lasix for now. Fairly severe chronic tremor notes. She is c/o a runny nose, but does not appear ill. Malodorous urine is reported. Repeat UA. Will need repeat TSH as an outpt.
[2017-06-20] MEDS: CloZAPine 25 MG TABLET PO SCH (21:16)
[2017-06-21] MEDS: LEVOTHYROXINE 50 MCG TABLET PO SCH (06:08)
[2017-06-21] MEDS: LORazepam 1 MG TABLET PO SCH ×5 (11:17→20:58)
[2017-06-21] MEDS: BISACODYL 10 MG SUPPOSITORY RECTALLY SCH ×2 (11:17→15:34)
[2017-06-21] MEDS: SOLIFENACIN 5mg TABLET PO SCH ×2 (11:18→15:35)
[2017-06-21] MEDS: CEFTRIAXONE 1 G INJECTION IM SCH (18:18)
[2017-06-21] MEDS: LIDOCAINE 1% (10mg/ml) 2mL INJ PF SDV IM PRN (18:18)
[2017-06-21] MEDS: CloZAPine 25 MG TABLET PO SCH (20:58)
[2017-06-22] MEDS: LEVOTHYROXINE 50 MCG TABLET PO SCH (06:30)
--- NOTE | 2017-06-22 08:57 | Pharmacy Note - Antibiotics ---
Pharmacy - Antibiotic Therapy - Laboratory Information Laboratory 06/18/17 06/21/17 07:03 06:51 Creatinine 1.1 < 0.1 L D - Antibiotic Information CULTURE AND SENSITIVITY REVIEW: Organism: E. Coli Site: Urine Void Antibiotic: Rocephin 1 g IM q24h Sensitivity: WILLIS 1 Recommendation/Action: No Change Thanks, Oscar Gallardo, [facility]
[2017-06-22] MEDS: BISACODYL 10 MG SUPPOSITORY RECTALLY SCH (10:19)
[2017-06-22] MEDS: SOLIFENACIN 5mg TABLET PO SCH (10:19)
[2017-06-22] MEDS: LORazepam 1 MG TABLET PO SCH ×4 (10:20→21:07)
--- NOTE | 2017-06-22 15:20 | Neuropsych Progress Note ---
[facility] Subjective Date: 06/23/17 - Sujective/Severity of Illness Medications: Acetaminophen (Tylenol) 650 mg PO Q4H PRN PRN Reason: Pain Last Admin: 06/17/17 02:16 Dose: 650 mg Al Hydroxide/Mg Hydroxide (Maalox Plus) 30 ml PO TID PRN PRN Reason: Indigestion Bisacodyl (Dulcolax) 10 mg RECTALLY DAILY [facility] Last Admin: 06/22/17 10:19 Dose: Not Given Ceftriaxone Sodium (Rocephin 1 Gm Vial) 1 g IM Q24H [facility] Stop: 06/23/17 17:31 Last Admin: 06/21/17 18:18 Dose: 1 g Clozapine (Clozaril) 25 mg PO HS [facility] Last Admin: 06/21/17 20:58 Dose: 25 mg Docusate Sodium (Colace) 100 mg PO BID PRN PRN Reason: Constipation Furosemide (Lasix 20 Mg Tab) 20 mg PO DAILY [facility] Last Admin: 06/20/17 10:54 Dose: Not Given Levothyroxine Sodium (Synthroid) 50 mcg PO ACB [facility] Last Admin: 06/22/17 06:30 Dose: 50 mcg Lidocaine HCl (Xylocaine-Mpf 1% Vial) 20 mg IM Q24H PRN Last Admin: 06/21/17 18:18 Dose: 20 mg Lorazepam (Ativan) 0.5 mg PO Q6H PRN PRN Reason: Extreme agitation Last Admin: 06/17/17 02:16 Dose: 0.5 mg Lorazepam (Ativan Inj) 0.5 mg IM Q6H PRN PRN Reason: Extreme agitation Lorazepam (Ativan) 1 mg PO TID [facility] Last Admin: 06/22/17 14:52 Dose: 1 mg Lorazepam (Ativan Inj) 1 mg IM TID PRN Last Admin: 06/21/17 17:18 Dose: 1 mg Magnesium Hydroxide (Mom) 30 ml PO Q12H PRN PRN Reason: Constipation Nystatin (Mycostatin) 1 applic TP BID [facility] Last Admin: 06/22/17 08:48 Dose: 1 applic Polyethylene Glycol (Miralax) 17 gm PO DAILY PRN PRN Reason: Constipation Solifenacin (Vesicare) 5 mg PO DAILY [facility] Last Admin: 06/22/17 10:19 Dose: 5 mg Subjective: Patient seen and chart reviewed. Case discussed with treatment team. On interview, patient is sitting with staff in her room and preparing to take a shower. She reports that her mood is "better" and tells me "I'm not supposed to have a bath." Is more redirectable than on previous days. She doesn't answer other interview questions as she tends to perseverate on one phrase. Nursing staff report patient has been increasingly more adherent with medications and Ativan seems to be helpful in relief of catatonia symptoms. Patient did make some delusional comments that she was going to overnight on 06/20. She has drank 4 Magic Shakes and 2 cups of water in the past 24 hours, and will speak in short sentences. No report of aggressive behavior towards staff. Patient slept 6.75 hours overnight. VSS. Psychotropic PRNs required in the past 24 hours: Required scheduled Ativan to be given IM rather than PO due to refusal yesterday afternoon. Discussed care and treatment plan with patient's son Sivakumar as well; all questions answered to his satisfaction at that time. Start Time: 08:30 Stop Time: 09:10 Care: >50% of this visit spent in counseling/coordination care. (discussion of care with staff, son/DPOA) Mental Status Exam Vitals: Last Vital Signs Temp 96.8 F 06/22/17 08:00 Pulse 101 H 06/22/17 08:00 Resp 18 06/22/17 08:00 BP 141/80 H 06/22/17 08:00 Pulse Ox 95 06/22/17 08:00 Height: 1.68 m Weight: 84.5 kg - Mental Status Exam Muscle Strength/Tone: Rigid, Other (Parkinsonian) Dressing: Casual Grooming: Fair Attitude: Guarded, Suspicious Motor Activity: Retardation, Tremors (in all extremities, decreased in intensity from admission), Catatonic (improving) Eye Contact: Poor Speech: Slowed Volume: Soft Rhythm: Mumbled, Perseveration Sensory: Alert Orientation: Disoriented to situation, Oriented to person, Oriented to place, Oriented to time Mood: Other ("better") Affect: Blunted Rate of Thoughts: Delayed Thought Organization: Perseverations, Blocking (possible), [place], Other ( Significant thought latency) Associations: Illogical Abstract Reasoning: Impaired, concrete Thought Content: Delusions, Helplessness, Paranoia (per nursing staff), Somatic Concerns Perception/Psychotic: Psychotic (VH reported by NH) Language: Other (Unclear) Fund of Knowledge: Other (Believed to be decreased from baseline, unable to fully assess) Memory: Poor-immediate, Poor-recent Suicidal Ideation: None Homicidal Ideation: None Insight: Impaired Judgement: Impaired Impulse Control: Poor - Laboratory Result Diagrams: 06/23/17 07:45 06/23/17 07:45 Assessment and Plan (1) Psychosis due to Parkinson's disease Problem details: R/O MDD, severe, with psychotic features R/O Parkinson's dementia or other MNCD Current visit: Yes Status: Acute (2) Parkinson's disease Current visit: No Status: Chronic (3) Catatonia Current visit: Yes Status: Acute Continue Ativan 1mg PO TID (to be given IM if patient refuses - reeducated nursing staff on that it MUST be given to patient). Increase clozaril to 25mg PO BID to target psychosis. Catatonia slowly improving. Hospital Course Summary Disclaimer: The visit summary below is not to be considered part of the above Progress Note. Hospital Course: Plan - 06/17/17: Agree with admission to [facility] for further psychiatric care per Dr. Reed and team. Hospitalist service consulted for medical management. Provide safe and supportive environment. Evaluation in ED revealed hypernatremia (Na 148). Encourage oral intake. Will recheck on 06/18/17. Slightly elevated TSH at 5.12. Possibly due to patient refusing meds. Recommend continuing to monitor as outpatient with recheck in 4-6 weeks. Continue home Synthroid. Continue home medications. Monitor blood pressure closely. Recheck labs periodically throughout admission to monitor blood counts, electrolytes and renal function. Upon discharge, patient's care will be returned to her PCP, Dr. Matta. Patient is a DNR code. 06/18/17 Psych: Agreed upon following plan with son/DPOA: Discontinue home Seroquel, Nuplazid. Restart Ativan 1mg PO TID for catatonia. If patient refuses PO, to be given IM. Encourage PO nutrition. Will start clozapine 25mg PO q HS. Will order EKG as well. 06/19/17 Psych- Tolerating meds. Continue current care 06/20/17 Psych- Pt remains hypersomnolent and non verbal. Refusing meds 06/20/17: Patient continues to appear a bit dehydrated on labs. Will repeat labs in AM. May need some IVF. Hold Lasix for now. Fairly severe chronic tremor notes. She is c/o a runny nose, but does not appear ill. Malodorous urine is reported. Repeat UA. Will need repeat TSH as an outpt. 06/22/17 Psych: Continue Ativan 1mg PO TID (to be given IM if patient refuses - reeducated nursing staff on that it MUST be given to patient). Increase clozaril to 25mg PO BID to target psychosis. Catatonia slowly improving.
--- NOTE | 2017-06-22 15:41 | Progress Note ---
- Date 06/22/17 Subjective: Patient is seen resting in bed. She has significant resting tremors. She speaks to me but her speech is hard to understand. She tells me she doesn't want to take any more medication. She has had some nausea and vomiting but declines ODT Zofran. She does ask for a drink of water and takes a sip. No CP, SOA, fever, or syncopal episodes. Objective Vital signs: Temperature 96.8 F 06/22/17 08:00 Pulse Rate 101 H 06/22/17 08:00 Respiratory Rate 18 06/22/17 08:00 Blood Pressure 141/80 H 06/22/17 08:00 Pulse Oximetry 95 06/22/17 08:00 Height/Weight/BMI: Height 1.68 m Weight 84.5 kg Body Mass Index 31.6 - Constitutional Present: no acute distress, well nourished, well developed - Routine HEENT Exam Head: Present: normocephalic, atraumatic - Routine Respiratory Exam Present: CTA bilaterally. Absent: wheezes - Routine Cardiovascular Exam Present: RRR, no murmur - Routine Abdominal Exam Present: soft, non distended, non tender Comments: when pressing on her abdomen she c/o nausea but no pain - Routine Extremities Exam Present: edema (trace), normal capillary refill - Routine Skin Exam Present: dry, warm - Routine Neurological Exam Present: alert - Routine Lymphatic Exam Lymphatic: Absent: adenopathy - Routine Psychiatric Exam Present: cooperative, depressed Results - Labs CBC & Chem 7: 06/21/17 06:51 06/21/17 06:51 Microbiology Results: Microbiology 06/20/17 21:44 Urine, Voided (Cc/notcc) Urine Culture - Final Escherichia coli Assessment and Plan Assessment and Plan: Assessment: Psychosis with acute delirium and paranoia. Hypernatremia, present on admission. Dementia. Parkinson's disease. Urinary incontinence. Generalized weakness. Chronic pain. Allergic rhinitis. Hypothyroidism. Hypotension. Major depressive disorder. Seborrheic dermatitis. Insomnia. Paralysis agitans. Plan Repeat labs in am. Creatinine may be a lab error given significant change from previous result. Encourage fluids. Depending on labs, may need IVF's if patient agrees. Continues on Rocephin IM (pt declining po meds) for UTI. - Physician Narrative Narrative: Date: 06/22/17 Time: 1537 Hospital Course Summary Disclaimer: The visit summary below is not to be considered part of the above Progress Note. Hospital Course: Plan - 06/17/17: Agree with admission to [facility] for further psychiatric care per Dr. Reed and team. Hospitalist service consulted for medical management. Provide safe and supportive environment. Evaluation in ED revealed hypernatremia (Na 148). Encourage oral intake. Will recheck on 06/18/17. Slightly elevated TSH at 5.12. Possibly due to patient refusing meds. Recommend continuing to monitor as outpatient with recheck in 4-6 weeks. Continue home Synthroid. Continue home medications. Monitor blood pressure closely. Recheck labs periodically throughout admission to monitor blood counts, electrolytes and renal function. Upon discharge, patient's care will be returned to her PCP, Dr. Matta. Patient is a DNR code. 06/18/17 Psych: Agreed upon following plan with son/DPOA: Discontinue home Seroquel, Nuplazid. Restart Ativan 1mg PO TID for catatonia. If patient refuses PO, to be given IM. Encourage PO nutrition. Will start clozapine 25mg PO q HS. Will order EKG as well. 06/19/17 Psych- Tolerating meds. Continue current care 06/20/17 Psych- Pt remains hypersomnolent and non verbal. Refusing meds 06/20/17: Patient continues to appear a bit dehydrated on labs. Will repeat labs in AM. May need some IVF. Hold Lasix for now. Fairly severe chronic tremor notes. She is c/o a runny nose, but does not appear ill. Malodorous urine is reported. Repeat UA. Will need repeat TSH as an outpt. 06/22/17 Repeat labs in am. Creatinine may be a lab error given significant change from previous result. Encourage fluids. Depending on labs, may need IVF's if patient agrees. Continues on Rocephin IM (pt declining po meds) for UTI.
[2017-06-22] MEDS ORDERED: ONDANSETRON ODT 4 MG TABLET PO PRN (15:44)
[2017-06-22] MEDS: CEFTRIAXONE 1 G INJECTION IM SCH (17:04)
[2017-06-22] MEDS: CloZAPine 25 MG TABLET PO SCH (20:32)
[2017-06-23] MEDS: CloZAPine 25 MG TABLET PO SCH ×3 (03:17→20:29)
--- NOTE | 2017-06-23 09:03 | Neuropsych Progress Note ---
[facility] Subjective Date: 06/23/17 - Sujective/Severity of Illness Medications: Acetaminophen (Tylenol) 650 mg PO Q4H PRN PRN Reason: Pain Last Admin: 06/17/17 02:16 Dose: 650 mg Al Hydroxide/Mg Hydroxide (Maalox Plus) 30 ml PO TID PRN PRN Reason: Indigestion Bisacodyl (Dulcolax) 10 mg RECTALLY DAILY [facility] Last Admin: 06/22/17 10:19 Dose: Not Given Ceftriaxone Sodium (Rocephin 1 Gm Vial) 1 g IM Q24H [facility] Stop: 06/23/17 17:31 Last Admin: 06/22/17 17:04 Dose: 1 g Clozapine (Clozaril) 25 mg PO BID [facility] Last Admin: 06/23/17 03:17 Dose: Not Given Docusate Sodium (Colace) 100 mg PO BID PRN PRN Reason: Constipation Furosemide (Lasix 20 Mg Tab) 20 mg PO DAILY [facility] Last Admin: 06/20/17 10:54 Dose: Not Given Levothyroxine Sodium (Synthroid) 50 mcg PO ACB [facility] Last Admin: 06/22/17 06:30 Dose: 50 mcg Lidocaine HCl (Xylocaine-Mpf 1% Vial) 20 mg IM Q24H PRN Last Admin: 06/21/17 18:18 Dose: 20 mg Lorazepam (Ativan) 0.5 mg PO Q6H PRN PRN Reason: Extreme agitation Last Admin: 06/17/17 02:16 Dose: 0.5 mg Lorazepam (Ativan Inj) 0.5 mg IM Q6H PRN PRN Reason: Extreme agitation Lorazepam (Ativan) 1 mg PO TID [facility] Last Admin: 06/22/17 21:07 Dose: Not Given Lorazepam (Ativan Inj) 1 mg IM TID PRN Last Admin: 06/22/17 21:08 Dose: 1 mg Magnesium Hydroxide (Mom) 30 ml PO Q12H PRN PRN Reason: Constipation Nystatin (Mycostatin) 1 applic TP BID [facility] Last Admin: 06/22/17 20:32 Dose: 1 applic Ondansetron HCl (Zofran Odt Tablet) 4 mg PO Q4H PRN PRN Reason: Nausea &/or vomiting Polyethylene Glycol (Miralax) 17 gm PO DAILY PRN PRN Reason: Constipation Solifenacin (Vesicare) 5 mg PO DAILY [facility] Last Admin: 06/22/17 10:19 Dose: 5 mg Subjective: Patient seen and chart reviewed. Case discussed with treatment team. On interview, patient states that her mood is "alright" and she is feeling "fine " physically. Many of her answers are mumbled so difficult to understand. She denies any SI, HI or AVH. Nursing staff report patient has been increasingly more adherent with medications and Ativan seems to be helpful in relief of catatonia symptoms. She has been eating more and feeding self with minimal assistance at times due to tremor. Nursing staff report patient has been speaking in short sentences and has been a little easier to understand. She is able to make her needs known. The hospitalist is treating UTI with IM Rocephin and has put Lasix on hold; most recent Na was 148 on BMP but improved from previous. Patient slept 6.75 hours overnight. VSS. Psychotropic PRNs required in the past 24 hours: Required scheduled Ativan to be given IM rather than PO due to refusal last night. Start Time: 14:00 Stop Time: 14:20 Mental Status Exam Vitals: Last Vital Signs Temp 96.4 F L 06/23/17 08:00 Pulse 54 L 06/23/17 08:00 Resp 16 06/23/17 08:00 BP 123/65 06/23/17 08:00 Pulse Ox 100 06/23/17 08:00 Height: 1.68 m Weight: 84.5 kg - Mental Status Exam Muscle Strength/Tone: Rigid, Other (Parkinsonian) Dressing: Casual Grooming: Fair Attitude: Guarded Motor Activity: Retardation, Tremors (in all extremities, decreased in intensity from admission), Catatonic (improving) Eye Contact: Poor Speech: Slowed Volume: Soft Rhythm: Mumbled, Perseveration Orientation: Disoriented to situation, Oriented to person, Oriented to place, Oriented to time Mood: Other ("alright") Affect: Blunted Rate of Thoughts: Delayed Thought Organization: Perseverations, Blocking (possible), [place], Other ( Significant thought latency) Associations: Illogical Abstract Reasoning: Impaired, concrete Thought Content: Delusions, Helplessness, Paranoia (per nursing staff), Somatic Concerns Perception/Psychotic: Psychotic (VH reported by NH; now denies but unable to confirm) Language: Other (Unclear) Fund of Knowledge: Other (Believed to be decreased from baseline, unable to fully assess) Memory: Poor-immediate, Poor-recent Suicidal Ideation: None Homicidal Ideation: None Insight: Impaired Judgement: Impaired Impulse Control: Poor - Laboratory Result Diagrams: 06/23/17 07:45 06/23/17 07:45 Laboratory Results - last 24 hr 06/23/17 06/23/17 07:45 07:45 WBC 7.2 RBC 4.87 Hgb 14.2 Hct 44.0 MCV 90.3 MCH 29.2 MCHC 32.3 RDW Std Deviation 50.8 H Plt Count 152 MPV 12.4 Immature Gran % (Auto) 0.8 H Neut % (Auto) 49.9 Lymph % (Auto) 31.3 [place] % (Auto) 6.5 Eos % (Auto) 10.9 H Baso % (Auto) 0.6 Neut # (Auto) 3.6 Lymph # (Auto) 2.3 [place] # (Auto) 0.5 Eos # (Auto) 0.8 H Baso # (Auto) 0.0 Abs Immat Gran (auto) 0.06 H Turbidity < 20 Sodium 148 H Potassium 4.7 D Chloride 110 H Carbon Dioxide 27 Anion Gap 11 BUN 45.0 H Creatinine 0.9 D GFR Calculation 61 BUN/Creatinine Ratio 50 H Glucose 121 H Calculated Osmolality 297 H Calcium 10.2 Total Bilirubin 0.90 Icterus Index < 2 AST 31 ALT 12 Alkaline Phosphatase 91 Total Protein 6.4 Albumin 3.9 Globulin 2.5 Albumin/Globulin Ratio 1.6 Specimen Hemolysis 92 H Assessment and Plan (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 Will likely increase clozaril on 06/24. Hospital Course Summary Disclaimer: The visit summary below is not to be considered part of the above Progress Note. Hospital Course: Plan - 06/17/17: Agree with admission to [facility] for further psychiatric care per Dr. Reed and team. Hospitalist service consulted for medical management. Provide safe and supportive environment. Evaluation in ED revealed hypernatremia (Na 148). Encourage oral intake. Will recheck on 06/18/17. Slightly elevated TSH at 5.12. Possibly due to patient refusing meds. Recommend continuing to monitor as outpatient with recheck in 4-6 weeks. Continue home Synthroid. Continue home medications. Monitor blood pressure closely. Recheck labs periodically throughout admission to monitor blood counts, electrolytes and renal function. Upon discharge, patient's care will be returned to her PCP, Dr. Matta. Patient is a DNR code. 06/18/17 Psych: Agreed upon following plan with son/DPOA: Discontinue home Seroquel, Nuplazid. Restart Ativan 1mg PO TID for catatonia. If patient refuses PO, to be given IM. Encourage PO nutrition. Will start clozapine 25mg PO q HS. Will order EKG as well. 06/19/17 Psych- Tolerating meds. Continue current care 06/20/17 Psych- Pt remains hypersomnolent and non verbal. Refusing meds 06/20/17: Patient continues to appear a bit dehydrated on labs. Will repeat labs in AM. May need some IVF. Hold Lasix for now. Fairly severe chronic tremor notes. She is c/o a runny nose, but does not appear ill. Malodorous urine is reported. Repeat UA. Will need repeat TSH as an outpt. 06/22/17 Psych: Continue Ativan 1mg PO TID (to be given IM if patient refuses - reeducated nursing staff on that it MUST be given to patient). Increase clozaril to 25mg PO BID to target psychosis. Catatonia slowly improving. 06/23/17 Psych: Continue current care; catatonia is improving. Will likely increase clozaril on 06/24.
--- NOTE | 2017-06-23 09:28 | Progress Note ---
- Date 06/23/17 Subjective: Lucia is sleeping this morning during examination and she does not arouse. She appears to be comfortable breathing on room air without distress. Abdomen is soft and non tender. 123/65 this morning. Objective Vital signs: Temperature 96.4 F L 06/23/17 08:00 Pulse Rate 54 L 06/23/17 08:00 Respiratory Rate 16 06/23/17 08:00 Blood Pressure 123/65 06/23/17 08:00 Pulse Oximetry 100 06/23/17 08:00 Height/Weight/BMI: Height 1.68 m Weight 84.5 kg Body Mass Index 31.6 - Constitutional Present: no acute distress, well nourished, well developed - Routine HEENT Exam ENT: Present: mucous membranes moist - Routine Respiratory Exam Present: CTA bilaterally. Absent: wheezes - Routine Cardiovascular Exam Present: RRR, S1, S2. Absent: murmur - Routine Abdominal Exam Present: soft, normoactive bowel sounds, non distended. Absent: tenderness - Routine Skin Exam Present: intact, dry, warm - Routine Neurological Exam Present: alert, CN II-XII intact - Routine Lymphatic Exam Lymphatic: Absent: adenopathy - Routine Psychiatric Exam Present: normal affect Results - Labs CBC & Chem 7: 06/23/17 07:45 06/23/17 07:45 Microbiology Results: Microbiology 06/20/17 21:44 Urine, Voided (Cc/notcc) Urine Culture - Final Escherichia coli Assessment and Plan Assessment and Plan: Assessment: Psychosis with acute delirium and paranoia. Hypernatremia, present on admission. Dementia. Parkinson's disease. Urinary incontinence. Generalized weakness. Chronic pain. Allergic rhinitis. Hypothyroidism. Hypotension. Major depressive disorder. Seborrheic dermatitis. Insomnia. Paralysis agitans. Plan BMP done today- Sodium decreased to 148. [employer]intering [employer] Supervisor was normal today. Continues on IM Rocephin for treatment of UTI Lasix has been on hold. Encourage to participate in unit activities - Physician Narrative Narrative: Date: 06/23/17 Time: 921 Hospital Course Summary Disclaimer: The visit summary below is not to be considered part of the above Progress Note. Hospital Course: Plan - 06/17/17: Agree with admission to [facility] for further psychiatric care per Dr. Reed and team. Hospitalist service consulted for medical management. Provide safe and supportive environment. Evaluation in ED revealed hypernatremia (Na 148). Encourage oral intake. Will recheck on 06/18/17. Slightly elevated TSH at 5.12. Possibly due to patient refusing meds. Recommend continuing to monitor as outpatient with recheck in 4-6 weeks. Continue home Synthroid. Continue home medications. Monitor blood pressure closely. Recheck labs periodically throughout admission to monitor blood counts, electrolytes and renal function. Upon discharge, patient's care will be returned to her PCP, Dr. Matta. Patient is a DNR code. 06/18/17 Psych: Agreed upon following plan with son/DPOA: Discontinue home Seroquel, Nuplazid. Restart Ativan 1mg PO TID for catatonia. If patient refuses PO, to be given IM. Encourage PO nutrition. Will start clozapine 25mg PO q HS. Will order EKG as well. 06/19/17 Psych- Tolerating meds. Continue current care 06/20/17 Psych- Pt remains hypersomnolent and non verbal. Refusing meds 06/20/17: Patient continues to appear a bit dehydrated on labs. Will repeat labs in AM. May need some IVF. Hold Lasix for now. Fairly severe chronic tremor notes. She is c/o a runny nose, but does not appear ill. Malodorous urine is reported. Repeat UA. Will need repeat TSH as an outpt. 06/22/17 Psych: Continue Ativan 1mg PO TID (to be given IM if patient refuses - reeducated nursing staff on that it MUST be given to patient). Increase clozaril to 25mg PO BID to target psychosis. Catatonia slowly improving. 06/23/17 BMP done today- Sodium decreased to 148. [employer]intering [employer] Supervisor was normal today. Continues on IM Rocephin for treatment of UTI Lasix has been on hold. Encourage to participate in unit activities
[2017-06-23] MEDS: BISACODYL 10 MG SUPPOSITORY RECTALLY SCH (10:49)
[2017-06-23] MEDS: LEVOTHYROXINE 50 MCG TABLET PO SCH (11:50)
[2017-06-23] MEDS: LORazepam 1 MG TABLET PO SCH ×3 (11:51→20:29)
[2017-06-23] MEDS: SOLIFENACIN 5mg TABLET PO SCH (11:52)
[2017-06-23] MEDS: CEFTRIAXONE 1 G INJECTION IM SCH (17:32)
[2017-06-23] MEDS: LIDOCAINE 1% (10mg/ml) 2mL INJ PF SDV IM PRN (17:33)
[2017-06-24] MEDS: LEVOTHYROXINE 50 MCG TABLET PO SCH (07:52)
[2017-06-24] MEDS: CloZAPine 25 MG TABLET PO SCH ×4 (07:52→20:32)
[2017-06-24] MEDS: LORazepam 1 MG TABLET PO SCH ×5 (07:52→20:32)
[2017-06-24] MEDS: SOLIFENACIN 5mg TABLET PO SCH ×2 (07:52→09:54)
--- NOTE | 2017-06-24 09:11 | Neuropsych Progress Note ---
[facility] Subjective Date: 06/24/17 - Sujective/Severity of Illness Medications: Acetaminophen (Tylenol) 650 mg PO Q4H PRN PRN Reason: Pain Last Admin: 06/17/17 02:16 Dose: 650 mg Al Hydroxide/Mg Hydroxide (Maalox Plus) 30 ml PO TID PRN PRN Reason: Indigestion Bisacodyl (Dulcolax) 10 mg RECTALLY DAILY [facility] Last Admin: 06/23/17 10:49 Dose: Not Given Clozapine (Clozaril) 25 mg PO BID [facility] Last Admin: 06/24/17 07:52 Dose: 25 mg Docusate Sodium (Colace) 100 mg PO BID PRN PRN Reason: Constipation Furosemide (Lasix 20 Mg Tab) 20 mg PO DAILY [facility] Last Admin: 06/20/17 10:54 Dose: Not Given Levothyroxine Sodium (Synthroid) 50 mcg PO ACB [facility] Last Admin: 06/24/17 07:52 Dose: 50 mcg Lidocaine HCl (Xylocaine-Mpf 1% Vial) 20 mg IM Q24H PRN Last Admin: 06/23/17 17:33 Dose: 20 mg Lorazepam (Ativan) 0.5 mg PO Q6H PRN PRN Reason: Extreme agitation Last Admin: 06/17/17 02:16 Dose: 0.5 mg Lorazepam (Ativan Inj) 0.5 mg IM Q6H PRN PRN Reason: Extreme agitation Lorazepam (Ativan) 1 mg PO TID [facility] Last Admin: 06/24/17 07:52 Dose: 1 mg Lorazepam (Ativan Inj) 1 mg IM TID PRN Last Admin: 06/22/17 21:08 Dose: 1 mg Magnesium Hydroxide (Mom) 30 ml PO Q12H PRN PRN Reason: Constipation Nystatin (Mycostatin) 1 applic TP BID [facility] Last Admin: 06/23/17 20:31 Dose: 1 applic Ondansetron HCl (Zofran Odt Tablet) 4 mg PO Q4H PRN PRN Reason: Nausea &/or vomiting Polyethylene Glycol (Miralax) 17 gm PO DAILY PRN PRN Reason: Constipation Solifenacin (Vesicare) 5 mg PO DAILY [facility] Last Admin: 06/24/17 07:52 Dose: 5 mg Subjective: Patient seen and chart reviewed. Case discussed with treatment team. On interview, patient states that her mood is "a little bit worse," mainly because she wants to go home to [place]. She reports feeling like she could move a bit easier yesterday though no significant difference apparent from my observation. Many of her answers are mumbled so difficult to understand. She denies any SI, HI or AVH. She states she would not harm herself because she would be afraid of not being able to with God. She denies paranoia towards nursing staff though she had made a statement the prior evening about nursing staff trying to sabotage her. Nursing staff report patient has been increasingly more adherent with medications and Ativan seems to be helpful in relief of catatonia symptoms. She has been eating more and feeding self with minimal assistance at times due to tremor. Nursing staff report patient has been speaking in short sentences and has been a little easier to understand. She is able to make her needs known. She has been pleasant today with no significant problematic behaviors. Patient slept 7 hours overnight. VSS. Psychotropic PRNs required in the past 24 hours: None. Start Time: 13:00 Stop Time: 13:20 Mental Status Exam Vitals: Last Vital Signs Temp 97.1 F 06/23/17 23:09 Pulse 80 06/23/17 23:09 Resp 20 06/23/17 23:09 BP 111/53 06/23/17 23:09 Pulse Ox 97 06/23/17 23:09 Height: 1.68 m Weight: 84.5 kg - Mental Status Exam Muscle Strength/Tone: Rigid, Other (Parkinsonian) Dressing: Casual Grooming: Fair Attitude: Cooperative Motor Activity: Retardation, Tremors (in all extremities, decreased in intensity from admission), Catatonic (improving) Eye Contact: Poor Speech: Slowed Volume: Soft Rhythm: Mumbled, Perseveration Orientation: Disoriented to situation, Oriented to person, Oriented to place, Oriented to time Mood: Neutral Affect: Blunted Rate of Thoughts: Delayed Thought Organization: Perseverations, Blocking (possible), [place], Other ( Significant thought latency) Associations: Illogical Abstract Reasoning: Impaired, concrete Thought Content: Helplessness, Paranoia (mild, per nursing staff), Somatic Concerns Perception/Psychotic: Hx psychosis, not current Language: Other (Unclear) Fund of Knowledge: Other (Believed to be decreased from baseline, unable to fully assess) Memory: Poor-immediate, Poor-recent Suicidal Ideation: Denies Homicidal Ideation: Denies Insight: Impaired Judgement: Impaired Impulse Control: Poor - Laboratory Result Diagrams: 06/23/17 07:45 06/25/17 06:43 Assessment and Plan (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 Last labs on 06/23; WBC WNL. Hospital Course Summary Disclaimer: The visit summary below is not to be considered part of the above Progress Note. Hospital Course: Plan - 06/17/17: Agree with admission to [facility] for further psychiatric care per Dr. Reed and team. Hospitalist service consulted for medical management. Provide safe and supportive environment. Evaluation in ED revealed hypernatremia (Na 148). Encourage oral intake. Will recheck on 06/18/17. Slightly elevated TSH at 5.12. Possibly due to patient refusing meds. Recommend continuing to monitor as outpatient with recheck in 4-6 weeks. Continue home Synthroid. Continue home medications. Monitor blood pressure closely. Recheck labs periodically throughout admission to monitor blood counts, electrolytes and renal function. Upon discharge, patient's care will be returned to her PCP, Dr. Matta. Patient is a DNR code. 06/18/17 Psych: Agreed upon following plan with son/DPOA: Discontinue home Seroquel, Nuplazid. Restart Ativan 1mg PO TID for catatonia. If patient refuses PO, to be given IM. Encourage PO nutrition. Will start clozapine 25mg PO q HS. Will order EKG as well. 06/19/17 Psych- Tolerating meds. Continue current care 06/20/17 Psych- Pt remains hypersomnolent and non verbal. Refusing meds 06/20/17: Patient continues to appear a bit dehydrated on labs. Will repeat labs in AM. May need some IVF. Hold Lasix for now. Fairly severe chronic tremor notes. She is c/o a runny nose, but does not appear ill. Malodorous urine is reported. Repeat UA. Will need repeat TSH as an outpt. 06/22/17 Psych: Continue Ativan 1mg PO TID (to be given IM if patient refuses - reeducated nursing staff on that it MUST be given to patient). Increase clozaril to 25mg PO BID to target psychosis. Catatonia slowly improving. 06/23/17 Psych: Continue current care; catatonia is improving. Will likely increase clozaril on 06/24. 06/24/17 Psych: Increase Clozaril to 25mg PO q AM, 50mg PO q HS. Last labs on 06/23 ; WBC WNL.
[2017-06-24] MEDS: BISACODYL 10 MG SUPPOSITORY RECTALLY SCH (11:50)
--- NOTE | 2017-06-25 08:19 | Neuropsych Progress Note ---
[facility] Subjective Date: 06/25/17 - Sujective/Severity of Illness Medications: Acetaminophen (Tylenol) 650 mg PO Q4H PRN PRN Reason: Pain Last Admin: 06/17/17 02:16 Dose: 650 mg Al Hydroxide/Mg Hydroxide (Maalox Plus) 30 ml PO TID PRN PRN Reason: Indigestion Bisacodyl (Dulcolax) 10 mg RECTALLY DAILY [facility] Last Admin: 06/24/17 11:50 Dose: Not Given Clozapine (Clozaril) 25 mg PO DAILY [facility] Clozapine (Clozaril) 50 mg PO HS [facility] Last Admin: 06/24/17 20:32 Dose: 50 mg Docusate Sodium (Colace) 100 mg PO BID PRN PRN Reason: Constipation Furosemide (Lasix 20 Mg Tab) 20 mg PO DAILY [facility] Last Admin: 06/20/17 10:54 Dose: Not Given Levothyroxine Sodium (Synthroid) 50 mcg PO ACB [facility] Last Admin: 06/24/17 07:52 Dose: 50 mcg Lidocaine HCl (Xylocaine-Mpf 1% Vial) 20 mg IM Q24H PRN Last Admin: 06/23/17 17:33 Dose: 20 mg Lorazepam (Ativan) 0.5 mg PO Q6H PRN PRN Reason: Extreme agitation Last Admin: 06/17/17 02:16 Dose: 0.5 mg Lorazepam (Ativan Inj) 0.5 mg IM Q6H PRN PRN Reason: Extreme agitation Lorazepam (Ativan) 1 mg PO TID [facility] Last Admin: 06/24/17 20:32 Dose: 1 mg Lorazepam (Ativan Inj) 1 mg IM TID PRN Last Admin: 06/22/17 21:08 Dose: 1 mg Magnesium Hydroxide (Mom) 30 ml PO Q12H PRN PRN Reason: Constipation Nystatin (Mycostatin) 1 applic TP BID [facility] Last Admin: 06/24/17 20:32 Dose: 1 applic Ondansetron HCl (Zofran Odt Tablet) 4 mg PO Q4H PRN PRN Reason: Nausea &/or vomiting Polyethylene Glycol (Miralax) 17 gm PO DAILY PRN PRN Reason: Constipation Solifenacin (Vesicare) 5 mg PO DAILY [facility] Last Admin: 06/24/17 09:54 Dose: 5 mg Subjective: Patient seen and chart reviewed. Case discussed with treatment team. On interview, patient states that her mood is "good" and she feels "stronger" today. She is observed drinking and feeding herself. She repeatedly asks whether she can return to [place] today though she is polite throughout interview. She denies any SI, HI or AVH. She has not exhibited any paranoia in past 24 hours. Nursing staff report patient has been increasingly more adherent with medications and Ativan seems to be helpful in relief of catatonia symptoms. She has been eating more and feeding self with minimal assistance at times due to tremor. Nursing staff report patient has been speaking in short sentences and has been a little easier to understand. She is able to make her needs known. She has been pleasant today with no significant problematic behaviors. She tends to isolate to her room but comes to dayroom with encouragement. Patient slept 5.75 hours overnight. VSS. Psychotropic PRNs required in the past 24 hours: None. Will need to monitor WBC by 06/30 or prior; plan to also recheck TSH on next lab draw. Start Time: 13:00 Stop Time: 13:20 Mental Status Exam Vitals: Last Vital Signs Temp 96.2 F L 06/24/17 19:42 Pulse 75 06/24/17 19:42 Resp 18 06/24/17 19:42 BP 93/63 06/24/17 19:42 Pulse Ox 96 06/24/17 19:42 Height: 1.68 m Weight: 84.5 kg - Mental Status Exam Muscle Strength/Tone: Rigid, Other (Parkinsonian) Dressing: Casual Grooming: Fair Attitude: Cooperative Motor Activity: Retardation, Tremors (in all extremities, decreased in intensity from admission) Eye Contact: Poor Speech: Slowed Volume: Soft Rhythm: Mumbled Orientation: Disoriented to situation, Oriented to person, Oriented to place, Oriented to time Mood: Neutral Affect: Relaxed Rate of Thoughts: Delayed Thought Organization: [place], Confused, Other (Significant thought latency) Associations: Intact Abstract Reasoning: Impaired, concrete Thought Content: Other (No abnormal thought content elicited on interview) Perception/Psychotic: Hx psychosis, not current Language: Other (Unclear) Fund of Knowledge: Other (Believed to be decreased from baseline, unable to fully assess) Memory: Poor-immediate, Poor-recent Suicidal Ideation: Denies Homicidal Ideation: Denies Insight: Impaired Judgement: Impaired Impulse Control: Fair - Laboratory Result Diagrams: 06/23/17 07:45 06/25/17 06:43 Laboratory Results - last 24 hr 06/25/17 06:43 Turbidity < 20 Sodium 144 Potassium 3.7 D Chloride 105 Carbon Dioxide 30 Anion Gap 9 BUN 30.0 H Creatinine 1.0 GFR Calculation 54 BUN/Creatinine Ratio 30 H Glucose 112 H Calculated Osmolality 284 H Calcium 9.7 Icterus Index < 2 Specimen Hemolysis < 15 Assessment and Plan (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 Plan to repeat labs on or before 06/30, including TSH. Hospital Course Summary Disclaimer: The visit summary below is not to be considered part of the above Progress Note. Hospital Course: Plan - 06/17/17: Agree with admission to [facility] for further psychiatric care per Dr. Reed and team. Hospitalist service consulted for medical management. Provide safe and supportive environment. Evaluation in ED revealed hypernatremia (Na 148). Encourage oral intake. Will recheck on 06/18/17. Slightly elevated TSH at 5.12. Possibly due to patient refusing meds. Recommend continuing to monitor as outpatient with recheck in 4-6 weeks. Continue home Synthroid. Continue home medications. Monitor blood pressure closely. Recheck labs periodically throughout admission to monitor blood counts, electrolytes and renal function. Upon discharge, patient's care will be returned to her PCP, Dr. Matta. Patient is a DNR code. 06/18/17 Psych: Agreed upon following plan with son/DPOA: Discontinue home Seroquel, Nuplazid. Restart Ativan 1mg PO TID for catatonia. If patient refuses PO, to be given IM. Encourage PO nutrition. Will start clozapine 25mg PO q HS. Will order EKG as well. 06/19/17 Psych- Tolerating meds. Continue current care 06/20/17 Psych- Pt remains hypersomnolent and non verbal. Refusing meds 06/20/17: Patient continues to appear a bit dehydrated on labs. Will repeat labs in AM. May need some IVF. Hold Lasix for now. Fairly severe chronic tremor notes. She is c/o a runny nose, but does not appear ill. Malodorous urine is reported. Repeat UA. Will need repeat TSH as an outpt. 06/22/17 Psych: Continue Ativan 1mg PO TID (to be given IM if patient refuses - reeducated nursing staff on that it MUST be given to patient). Increase clozaril to 25mg PO BID to target psychosis. Catatonia slowly improving. 06/23/17 Psych: Continue current care; catatonia is improving. Will likely increase clozaril on 06/24. 06/24/17 Psych: Increase Clozaril to 25mg PO q AM, 50mg PO q HS. Last labs on 06/23 ; WBC WNL. 06/25/17 Psych: Continue current care. Plan to repeat labs on or before 06/30, including TSH.
[2017-06-25] MEDS: LEVOTHYROXINE 50 MCG TABLET PO SCH (12:54)
[2017-06-25] MEDS: BISACODYL 10 MG SUPPOSITORY RECTALLY SCH (12:54)
[2017-06-25] MEDS: LORazepam 1 MG TABLET PO SCH ×3 (12:55→22:29)
[2017-06-25] MEDS: CloZAPine 25 MG TABLET PO SCH ×2 (12:55→22:29)
[2017-06-25] MEDS: SOLIFENACIN 5mg TABLET PO SCH (12:55)
[2017-06-26] MEDS: BISACODYL 10 MG SUPPOSITORY RECTALLY SCH ×2 (06:41→09:18)
[2017-06-26] MEDS: LEVOTHYROXINE 50 MCG TABLET PO SCH (09:18)
[2017-06-26] MEDS: CloZAPine 25 MG TABLET PO SCH ×2 (09:19→20:50)
[2017-06-26] MEDS: LORazepam 1 MG TABLET PO SCH ×3 (09:19→20:51)
[2017-06-26] MEDS: SOLIFENACIN 5mg TABLET PO SCH (09:19)
--- NOTE | 2017-06-26 11:24 | Neuropsych Progress Note ---
[facility] Subjective Date: 06/26/17 - Sujective/Severity of Illness Medications: Acetaminophen (Tylenol) 650 mg PO Q4H PRN PRN Reason: Pain Last Admin: 06/17/17 02:16 Dose: 650 mg Al Hydroxide/Mg Hydroxide (Maalox Plus) 30 ml PO TID PRN PRN Reason: Indigestion Bisacodyl (Dulcolax) 10 mg RECTALLY DAILY [facility] Last Admin: 06/26/17 09:18 Dose: Not Given Clozapine (Clozaril) 25 mg PO DAILY [facility] Last Admin: 06/26/17 09:19 Dose: 25 mg Clozapine (Clozaril) 50 mg PO HS [facility] Last Admin: 06/25/17 22:29 Dose: 50 mg Docusate Sodium (Colace) 100 mg PO BID PRN PRN Reason: Constipation Furosemide (Lasix 20 Mg Tab) 20 mg PO DAILY [facility] Last Admin: 06/20/17 10:54 Dose: Not Given Levothyroxine Sodium (Synthroid) 50 mcg PO ACB [facility] Last Admin: 06/26/17 09:18 Dose: 50 mcg Lorazepam (Ativan) 0.5 mg PO Q6H PRN PRN Reason: Extreme agitation Last Admin: 06/17/17 02:16 Dose: 0.5 mg Lorazepam (Ativan Inj) 0.5 mg IM Q6H PRN PRN Reason: Extreme agitation Lorazepam (Ativan) 1 mg PO TID [facility] Last Admin: 06/26/17 09:19 Dose: 1 mg Lorazepam (Ativan Inj) 1 mg IM TID PRN Last Admin: 18 21:08 Dose: 1 mg Magnesium Hydroxide (Mom) 30 ml PO Q12H PRN PRN Reason: Constipation Nystatin (Mycostatin) 1 applic TP BID [facility] Last Admin: 06/26/17 09:20 Dose: 1 applic Ondansetron HCl (Zofran Odt Tablet) 4 mg PO Q4H PRN PRN Reason: Nausea &/or vomiting Polyethylene Glycol (Miralax) 17 gm PO DAILY PRN PRN Reason: Constipation Solifenacin (Vesicare) 5 mg PO DAILY [facility] Last Admin: 06/26/17 09:19 Dose: 5 mg Subjective: Patient seen and chart reviewed. Nursing reports pt is doing better. Sleeping well and has a good appetite. No behaviors noted. On face to face the pt states she is doing well. She is pleasant and joking with this bid writer. She denies any pain. Tolerating meds. Voices no concerns at this time. Start Time: 09:30 Stop Time: 09:45 Mental Status Exam Vitals: Last Vital Signs Temp 97.4 F 06/26/17 07:59 Pulse 75 06/26/17 07:59 Resp 14 06/26/17 07:59 BP 115/62 06/26/17 07:59 Pulse Ox 98 06/26/17 07:59 Height: 1.68 m Weight: 84.5 kg - Mental Status Exam Muscle Strength/Tone: Rigid, Other (Parkinsonian) Dressing: Casual Grooming: Fair Attitude: Cooperative Motor Activity: Retardation, Tremors (in all extremities, decreased in intensity from admission) Eye Contact: Poor Speech: Slowed Volume: Soft Rhythm: Mumbled Orientation: Disoriented to situation, Oriented to person, Oriented to place, Oriented to time Mood: Neutral Rate of Thoughts: Delayed Thought Organization: [place], Confused, Other (Significant thought latency) Associations: Intact Abstract Reasoning: Impaired, concrete Thought Content: Other (No abnormal thought content elicited on interview) Perception/Psychotic: Hx psychosis, not current Language: Other (Unclear) Fund of Knowledge: Other (Believed to be decreased from baseline, unable to fully assess) Memory: Poor-immediate, Poor-recent Suicidal Ideation: Denies Homicidal Ideation: Denies Insight: Impaired Judgement: Impaired Impulse Control: Fair - Laboratory Result Diagrams: 06/23/17 07:45 06/25/17 06:43 Assessment and Plan (1) Parkinson's disease Current visit: No Status: Chronic (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 Hospital Course: Plan - 06/17/17: Agree with admission to [facility] for further psychiatric care per Dr. Reed and team. Hospitalist service consulted for medical management. Provide safe and supportive environment. Evaluation in ED revealed hypernatremia (Na 148). Encourage oral intake. Will recheck on 06/18/17. Slightly elevated TSH at 5.12. Possibly due to patient refusing meds. Recommend continuing to monitor as outpatient with recheck in 4-6 weeks. Continue home Synthroid. Continue home medications. Monitor blood pressure closely. Recheck labs periodically throughout admission to monitor blood counts, electrolytes and renal function. Upon discharge, patient's care will be returned to her PCP, Dr. Matta. Patient is a DNR code. 06/18/17 Psych: Agreed upon following plan with son/DPOA: Discontinue home Seroquel, Nuplazid. Restart Ativan 1mg PO TID for catatonia. If patient refuses PO, to be given IM. Encourage PO nutrition. Will start clozapine 25mg PO q HS. Will order EKG as well. 06/19/17 Psych- Tolerating meds. Continue current care 06/20/17 Psych- Pt remains hypersomnolent and non verbal. Refusing meds 06/20/17: Patient continues to appear a bit dehydrated on labs. Will repeat labs in AM. May need some IVF. Hold Lasix for now. Fairly severe chronic tremor notes. She is c/o a runny nose, but does not appear ill. Malodorous urine is reported. Repeat UA. Will need repeat TSH as an outpt. 06/22/17 Psych: Continue Ativan 1mg PO TID (to be given IM if patient refuses - reeducated nursing staff on that it MUST be given to patient). Increase clozaril to 25mg PO BID to target psychosis. Catatonia slowly improving. 06/23/17 Psych: Continue current care; catatonia is improving. Will likely increase clozaril on 06/24. 06/24/17 Psych: Increase Clozaril to 25mg PO q AM, 50mg PO q HS. Last labs on 06/23 ; WBC WNL. 06/25/17 Psych: Continue current care. Plan to repeat labs on or before 06/30, including TSH. 06/26/17 psych note- Continue current tiffany
[2017-06-27] MEDS: LEVOTHYROXINE 50 MCG TABLET PO SCH (05:32)
[2017-06-27] MEDS: SOLIFENACIN 5mg TABLET PO SCH (08:36)
[2017-06-27] MEDS: LORazepam 1 MG TABLET PO SCH ×3 (08:36→20:12)
[2017-06-27] MEDS: CloZAPine 25 MG TABLET PO SCH ×2 (08:37→20:12)
[2017-06-27] MEDS: BISACODYL 10 MG SUPPOSITORY RECTALLY SCH (08:37)
--- NOTE | 2017-06-27 11:39 | Neuropsych Progress Note ---
[facility] Subjective Date: 06/27/17 - Sujective/Severity of Illness Medications: Acetaminophen (Tylenol) 650 mg PO Q4H PRN PRN Reason: Pain Last Admin: 06/17/17 02:16 Dose: 650 mg Al Hydroxide/Mg Hydroxide (Maalox Plus) 30 ml PO TID PRN PRN Reason: Indigestion Bisacodyl (Dulcolax) 10 mg RECTALLY DAILY [facility] Last Admin: 06/27/17 08:37 Dose: 10 mg Clozapine (Clozaril) 25 mg PO DAILY [facility] Last Admin: 06/27/17 08:37 Dose: 25 mg Clozapine (Clozaril) 50 mg PO HS [facility] Last Admin: 06/26/17 20:50 Dose: 50 mg Docusate Sodium (Colace) 100 mg PO BID PRN PRN Reason: Constipation Furosemide (Lasix 20 Mg Tab) 20 mg PO DAILY [facility] Last Admin: 06/20/17 10:54 Dose: Not Given Levothyroxine Sodium (Synthroid) 50 mcg PO ACB [facility] Last Admin: 06/27/17 05:32 Dose: 50 mcg Lorazepam (Ativan) 0.5 mg PO Q6H PRN PRN Reason: Extreme agitation Last Admin: 06/17/17 02:16 Dose: 0.5 mg Lorazepam (Ativan Inj) 0.5 mg IM Q6H PRN PRN Reason: Extreme agitation Lorazepam (Ativan) 1 mg PO TID [facility] Last Admin: 06/27/17 08:36 Dose: 1 mg Lorazepam (Ativan Inj) 1 mg IM TID PRN Last Admin: 06/22/17 21:08 Dose: 1 mg Magnesium Hydroxide (Mom) 30 ml PO Q12H PRN PRN Reason: Constipation Nystatin (Mycostatin) 1 applic TP BID [facility] Last Admin: 06/27/17 08:37 Dose: 1 applic Ondansetron HCl (Zofran Odt Tablet) 4 mg PO Q4H PRN PRN Reason: Nausea &/or vomiting Polyethylene Glycol (Miralax) 17 gm PO DAILY PRN PRN Reason: Constipation Solifenacin (Vesicare) 5 mg PO DAILY [facility] Last Admin: 06/27/17 08:36 Dose: 5 mg Subjective: Patient seen and chart reviewed. Nursing reports pt is doing better. Sleeping well and has a good appetite. On face to face the pt is pleasant but confused. She reports her mood is stable. She denies any pain. Tolerating meds Start Time: 10:00 Stop Time: 10:15 Mental Status Exam Vitals: Last Vital Signs Temp 96.5 F L 06/27/17 08:00 Pulse 89 06/27/17 08:00 Resp 16 06/27/17 10:40 BP 112/57 06/27/17 08:00 Pulse Ox 99 06/27/17 08:00 Height: 1.68 m Weight: 84.5 kg - Mental Status Exam Muscle Strength/Tone: Rigid, Other (Parkinsonian) Dressing: Casual Grooming: Fair Attitude: Cooperative Motor Activity: Retardation, Tremors (in all extremities, decreased in intensity from admission) Eye Contact: Poor Speech: Slowed Volume: Soft Rhythm: Mumbled Orientation: Disoriented to situation, Oriented to person, Oriented to place, Oriented to time Mood: Neutral Rate of Thoughts: Delayed Thought Organization: [place], Confused, Other (Significant thought latency) Associations: Intact Abstract Reasoning: Impaired, concrete Thought Content: Other (No abnormal thought content elicited on interview) Perception/Psychotic: Hx psychosis, not current Language: Other (Unclear) Fund of Knowledge: Other (Believed to be decreased from baseline, unable to fully assess) Memory: Poor-immediate, Poor-recent Suicidal Ideation: Denies Homicidal Ideation: Denies Insight: Impaired Judgement: Impaired Impulse Control: Fair - Laboratory Result Diagrams: 06/23/17 07:45 06/25/17 06:43 Assessment and Plan (1) Parkinson's disease Current visit: No Status: Chronic (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 Hospital Course: Plan - 06/17/17: Agree with [facility] for further psychiatric care per Dr. Reed and team. Hospitalist service consulted for medical management. Provide safe and supportive environment. Evaluation in ED revealed hypernatremia (Na 148). Encourage oral intake. Will recheck on 06/18/17. Slightly elevated TSH at 5.12. Possibly due to patient refusing meds. Recommend continuing to monitor as outpatient with recheck in 4-6 weeks. Continue home Synthroid. Continue home medications. Monitor blood pressure closely. Recheck labs periodically throughout admission to monitor blood counts, electrolytes and renal function. Upon discharge, patient's care will be returned to her PCP, Dr. Matta. Patient is a DNR code. 06/18/17 Psych: Agreed upon following plan with son/DPOA: Discontinue home Seroquel, Nuplazid. Restart Ativan 1mg PO TID for catatonia. If patient refuses PO, to be given IM. Encourage PO nutrition. Will start clozapine 25mg PO q HS. Will order EKG as well. 06/19/17 Psych- Tolerating meds. Continue current care 06/20/17 Psych- Pt remains hypersomnolent and non verbal. Refusing meds 06/20/17: Patient continues to appear a bit dehydrated on labs. Will repeat labs in AM. May need some IVF. Hold Lasix for now. Fairly severe chronic tremor notes. She is c/o a runny nose, but does not appear ill. Malodorous urine is reported. Repeat UA. Will need repeat TSH as an outpt. 06/22/17 Psych: Continue Ativan 1mg PO TID (to be given IM if patient refuses - reeducated nursing staff on that it MUST be given to patient). Increase clozaril to 25mg PO BID to target psychosis. Catatonia slowly improving. 06/23/17 Psych: Continue current care; catatonia is improving. Will likely increase clozaril on 06/24. 06/24/17 Psych: Increase Clozaril to 25mg PO q AM, 50mg PO q HS. Last labs on 06/23 ; WBC WNL. 06/25/17 Psych: Continue current care. Plan to repeat labs on or before 06/30, including TSH. 06/26/17 psych note- Continue current carre 06/27/17 Psych note- Continue current care
[2017-06-28] MEDS: LEVOTHYROXINE 50 MCG TABLET PO SCH (06:27)
[2017-06-28] MEDS: CloZAPine 25 MG TABLET PO SCH ×2 (12:11→20:03)
[2017-06-28] MEDS: SOLIFENACIN 5mg TABLET PO SCH (12:11)
[2017-06-28] MEDS: LORazepam 1 MG TABLET PO SCH ×2 (12:11→20:03)
[2017-06-28] MEDS: BISACODYL 10 MG SUPPOSITORY RECTALLY SCH (12:12)
--- NOTE | 2017-06-28 14:01 | Neuropsych Progress Note ---
[facility] Subjective Date: 06/28/17 - Sujective/Severity of Illness Medications: Acetaminophen (Tylenol) 650 mg PO Q4H PRN PRN Reason: Pain Last Admin: 06/17/17 02:16 Dose: 650 mg Al Hydroxide/Mg Hydroxide (Maalox Plus) 30 ml PO TID PRN PRN Reason: Indigestion Bisacodyl (Dulcolax) 10 mg RECTALLY DAILY [facility] Last Admin: 06/28/17 12:12 Dose: 10 mg Clozapine (Clozaril) 25 mg PO DAILY [facility] Last Admin: 06/28/17 12:11 Dose: 25 mg Clozapine (Clozaril) 50 mg PO HS [facility] Last Admin: 06/27/17 20:12 Dose: 50 mg Docusate Sodium (Colace) 100 mg PO BID PRN PRN Reason: Constipation Furosemide (Lasix 20 Mg Tab) 20 mg PO DAILY [facility] Last Admin: 06/20/17 10:54 Dose: Not Given Levothyroxine Sodium (Synthroid) 50 mcg PO ACB [facility] Last Admin: 06/28/17 06:27 Dose: 50 mcg Lorazepam (Ativan) 0.5 mg PO Q6H PRN PRN Reason: Extreme agitation Last Admin: 06/17/17 02:16 Dose: 0.5 mg Lorazepam (Ativan Inj) 0.5 mg IM Q6H PRN PRN Reason: Extreme agitation Lorazepam (Ativan) 1 mg PO HS [facility] Lorazepam (Ativan) 0.5 mg PO 08,15 [facility] Magnesium Hydroxide (Mom) 30 ml PO Q12H PRN PRN Reason: Constipation Nystatin (Mycostatin) 1 applic TP BID [facility] Last Admin: 06/28/17 12:11 Dose: 1 applic Ondansetron HCl (Zofran Odt Tablet) 4 mg PO Q4H PRN PRN Reason: Nausea &/or vomiting Polyethylene Glycol (Miralax) 17 gm PO DAILY PRN PRN Reason: Constipation Solifenacin (Vesicare) 5 mg PO DAILY [facility] Last Admin: 06/28/17 12:11 Dose: 5 mg Subjective: Patient seen and chart reviewed. Case discussed with treatment team. On interview, patient is pleasant and reports she feels "much better." She talks about how she loves to sit and look out the window. She denies any physical complaints. Patient denies any SI, HI or AVH. Patient denies any adverse side effects related to psychotropic medications. Nursing staff report patient has been pleasant and cooperative, with no significant behavioral problems. At times, she seems to eat too much food which makes her vomit. She ate 50% of 2 meals today. Patient has been adherent with medications. Patient slept 9.25 hours overnight. VSS. Psychotropic PRNs required in the past 24 hours: none. Start Time: 13:00 Stop Time: 13:20 Mental Status Exam Vitals: Last Vital Signs Temp 96.9 F 06/28/17 08:00 Pulse 74 06/28/17 08:00 Resp 16 06/28/17 12:11 BP 133/72 06/28/17 08:00 Pulse Ox 97 06/28/17 08:00 Height: 1.68 m Weight: 84.5 kg - Mental Status Exam Muscle Strength/Tone: Other (Parkinsonian) Dressing: Casual Grooming: Fair Attitude: Cooperative Motor Activity: Retardation, Tremors (in all extremities, decreased in intensity from admission) Eye Contact: Poor Speech: Slowed Volume: Soft Rhythm: Mumbled (significantly clearer than upon admission) Orientation: Disoriented to situation, Oriented to person, Oriented to place, Oriented to time Mood: Euthymic Affect: Relaxed Rate of Thoughts: Delayed Thought Organization: [place], Confused Associations: Intact (mostly) Abstract Reasoning: Impaired, concrete Thought Content: Other (No abnormal thought content elicited on interview) Perception/Psychotic: Hx psychosis, not current Language: Other (Unclear) Fund of Knowledge: Other (Believed to be decreased from baseline, unable to fully assess) Memory: Poor-immediate, Poor-recent Suicidal Ideation: Denies Homicidal Ideation: Denies Insight: Impaired Judgement: Impaired Impulse Control: Fair - Laboratory Result Diagrams: 06/23/17 07:45 06/25/17 06:43 Assessment and Plan (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 Decrease Ativan to 0.5mg PO BID (in AM and afternoon) and continue 1mg PO q HS. Monitor for any re-emerging symptoms of catatonia. Hospital Course Summary Disclaimer: The visit summary below is not to be considered part of the above Progress Note. Hospital Course: Plan - 06/17/17: [facility] with [facility] for further psychiatric care per Dr. Reed and team. Hospitalist service consulted for medical management. Provide safe and supportive environment. Evaluation in ED revealed hypernatremia (Na 148). Encourage oral intake. Will recheck on 06/18/17. Slightly elevated TSH at 5.12. Possibly due to patient refusing meds. Recommend continuing to monitor as outpatient with recheck in 4-6 weeks. Continue home Synthroid. Continue home medications. Monitor blood pressure closely. Recheck labs periodically throughout admission to monitor blood counts, electrolytes and renal function. Upon discharge, patient's care will be returned to her PCP, Dr. Matta. Patient is a DNR code. 06/18/17 Psych: Agreed upon following plan with son/DPOA: Discontinue home Seroquel, Nuplazid. Restart Ativan 1mg PO TID for catatonia. If patient refuses PO, to be given IM. Encourage PO nutrition. Will start clozapine 25mg PO q HS. Will order EKG as well. 06/19/17 Psych- Tolerating meds. Continue current care 06/20/17 Psych- Pt remains hypersomnolent and non verbal. Refusing meds 06/20/17: Patient continues to appear a bit dehydrated on labs. Will repeat labs in AM. May need some IVF. Hold Lasix for now. Fairly severe chronic tremor notes. She is c/o a runny nose, but does not appear ill. Malodorous urine is reported. Repeat UA. Will need repeat TSH as an outpt. 06/22/17 Psych: Continue Ativan 1mg PO TID (to be given IM if patient refuses - reeducated nursing staff on that it MUST be given to patient). Increase clozaril to 25mg PO BID to target psychosis. Catatonia slowly improving. 06/23/17 Psych: Continue current care; catatonia is improving. Will likely increase clozaril on 06/24. 06/24/17 Psych: Increase Clozaril to 25mg PO q AM, 50mg PO q HS. Last labs on 06/23 ; WBC WNL. 06/25/17 Psych: Continue current care. Plan to repeat labs on or before 06/30, including TSH. 06/26/17 psych note- Continue current carre 06/27/17 Psych note- Continue current care. 06/28/17 Psych: Begin Ativan taper. Decrease Ativan to 0.5mg PO BID (in AM and afternoon) and continue 1mg PO q HS. Monitor for any re-emerging symptoms of catatonia.
[2017-06-28] MEDS: LORazepam 0.5 MG TABLET PO SCH (15:49)
[2017-06-29] MEDS: LEVOTHYROXINE 50 MCG TABLET PO SCH ×2 (06:29→10:58)
[2017-06-29] MEDS: CloZAPine 25 MG TABLET PO SCH ×3 (10:58→21:22)
[2017-06-29] MEDS: SOLIFENACIN 5mg TABLET PO SCH (10:58)
[2017-06-29] MEDS: BISACODYL 10 MG SUPPOSITORY RECTALLY SCH (10:58)
[2017-06-29] MEDS: LORazepam 0.5 MG TABLET PO SCH ×2 (10:58→15:32)
--- NOTE | 2017-06-29 13:12 | Neuropsych Progress Note ---
[facility] Subjective Date: 06/29/17 - Sujective/Severity of Illness Medications: Acetaminophen (Tylenol) 650 mg PO Q4H PRN PRN Reason: Pain Last Admin: 06/17/17 02:16 Dose: 650 mg Al Hydroxide/Mg Hydroxide (Maalox Plus) 30 ml PO TID PRN PRN Reason: Indigestion Bisacodyl (Dulcolax) 10 mg RECTALLY DAILY [facility] Last Admin: 06/29/17 10:58 Dose: 10 mg Clozapine (Clozaril) 25 mg PO DAILY [facility] Last Admin: 06/29/17 10:58 Dose: 25 mg Clozapine (Clozaril) 50 mg PO HS [facility] Last Admin: 06/28/17 20:03 Dose: 50 mg Docusate Sodium (Colace) 100 mg PO BID PRN PRN Reason: Constipation Furosemide (Lasix 20 Mg Tab) 20 mg PO DAILY [facility] Last Admin: 06/20/17 10:54 Dose: Not Given Levothyroxine Sodium (Synthroid) 50 mcg PO ACB [facility] Last Admin: 06/29/17 10:58 Dose: 50 mcg Lorazepam (Ativan) 0.5 mg PO Q6H PRN PRN Reason: Extreme agitation Last Admin: 06/17/17 02:16 Dose: 0.5 mg Lorazepam (Ativan Inj) 0.5 mg IM Q6H PRN PRN Reason: Extreme agitation Lorazepam (Ativan) 1 mg PO HS [facility] Last Admin: 06/28/17 20:03 Dose: 1 mg Lorazepam (Ativan) 0.5 mg PO 08,15 [facility] Last Admin: 06/29/17 10:58 Dose: 0.5 mg Magnesium Hydroxide (Mom) 30 ml PO Q12H PRN PRN Reason: Constipation Nystatin (Mycostatin) 1 applic TP BID [facility] Last Admin: 06/29/17 10:58 Dose: 1 applic Ondansetron HCl (Zofran Odt Tablet) 4 mg PO Q4H PRN PRN Reason: Nausea &/or vomiting Polyethylene Glycol (Miralax) 17 gm PO DAILY PRN PRN Reason: Constipation Solifenacin (Vesicare) 5 mg PO DAILY [facility] Last Admin: 06/29/17 10:58 Dose: 5 mg Subjective: Patient seen and chart reviewed. Case discussed with treatment team. On interview, patient is pleasant and reports she feels "good." She is very appreciative of the care provided by nursing staff here. She asks about discharging back to her facility but is understanding of timeline. She denies any physical complaints and says she feels less tired with most recent med changes. Patient denies any SI, HI or AVH. Patient denies any adverse side effects related to psychotropic medications. Nursing staff report patient has been pleasant and cooperative, with no significant behavioral problems. Patient has been adherent with medications. Patient slept 4.75 hours overnight and attributes this to difficulty getting comfortable. VSS. Appetite is fair. Psychotropic PRNs required in the past 24 hours: none. Start Time: 09:00 Stop Time: 09:20 Mental Status Exam Vitals: Last Vital Signs Temp 96.5 F L 06/29/17 11:10 Pulse 77 06/29/17 11:10 Resp 20 06/29/17 12:10 BP 131/71 06/29/17 11:10 Pulse Ox 98 06/29/17 11:10 Height: 1.68 m Weight: 84.5 kg - Mental Status Exam Muscle Strength/Tone: Other (Parkinsonian) Dressing: Casual Grooming: Fair Attitude: Cooperative Motor Activity: Retardation, Tremors (in all extremities, decreased in intensity from admission) Eye Contact: Poor Speech: Slowed Volume: Soft Rhythm: Mumbled (significantly clearer than upon admission) Orientation: Disoriented to situation, Oriented to person, Oriented to place, Oriented to time Mood: Euthymic Rate of Thoughts: Delayed Thought Organization: [place], Confused Associations: Intact (mostly) Abstract Reasoning: Impaired, concrete Thought Content: Other (No abnormal thought content elicited on interview) Perception/Psychotic: Hx psychosis, not current Language: Other (Unclear) Fund of Knowledge: Other (Believed to be decreased from baseline, unable to fully assess) Memory: Poor-immediate, Poor-recent Suicidal Ideation: Denies Homicidal Ideation: Denies Insight: Impaired Judgement: Impaired Impulse Control: Fair - Laboratory Result Diagrams: 06/23/17 07:45 06/25/17 06:43 Assessment and Plan (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 Hospital Course Summary Disclaimer: The visit summary below is not to be considered part of the above Progress Note. Hospital Course: Plan - 06/17/17: Agree with admission to [facility] for further psychiatric care per Dr. Reed and team. Hospitalist service consulted for medical management. Provide safe and supportive environment. Evaluation in ED revealed hypernatremia (Na 148). Encourage oral intake. Will recheck on 06/18/17. Slightly elevated TSH at 5.12. Possibly due to patient refusing meds. Recommend continuing to monitor as outpatient with recheck in 4-6 weeks. Continue home Synthroid. Continue home medications. Monitor blood pressure closely. Recheck labs periodically throughout admission to monitor blood counts, electrolytes and renal function. Upon discharge, patient's care will be returned to her PCP, Dr. Matta. Patient is a DNR code. 06/18/17 Psych: Agreed upon following plan with son/DPOA: Discontinue home Seroquel, Nuplazid. Restart Ativan 1mg PO TID for catatonia. If patient refuses PO, to be given IM. Encourage PO nutrition. Will start clozapine 25mg PO q HS. Will order EKG as well. 06/19/17 Psych- Tolerating meds. Continue current care 06/20/17 Psych- Pt remains hypersomnolent and non verbal. Refusing meds 06/20/17: Patient continues to appear a bit dehydrated on labs. Will repeat labs in AM. May need some IVF. Hold Lasix for now. Fairly severe chronic tremor notes. She is c/o a runny nose, but does not appear ill. Malodorous urine is reported. Repeat UA. Will need repeat TSH as an outpt. 06/22/17 Psych: Continue Ativan 1mg PO TID (to be given IM if patient refuses - reeducated nursing staff on that it MUST be given to patient). Increase clozaril to 25mg PO BID to target psychosis. Catatonia slowly improving. 06/23/17 Psych: Continue current care; catatonia is improving. Will likely increase clozaril on 06/24. 06/24/17 Psych: Increase Clozaril to 25mg PO q AM, 50mg PO q HS. Last labs on 06/23 ; WBC WNL. 06/25/17 Psych: Continue current care. Plan to repeat labs on or before 06/30, including TSH. 06/26/17 psych note- Continue current carre 06/27/17 Psych note- Continue current care. 06/28/17 Psych: Begin Ativan taper. Decrease Ativan to 0.5mg PO BID (in AM and afternoon) and continue 1mg PO q HS. Monitor for any re-emerging symptoms of catatonia. 06/29/17 Psych: Will decrease Ativan to 0.5mg PO q AM and 1mg PO q HS on 06/30.
--- NOTE | 2017-06-29 16:07 | Progress Note ---
- Date 06/29/17 Subjective: Patient is seen today eating lunch in the dining room. She reports her appetite is good. She feels ok. No CP, SOA, nausea, fever or chills Tells me she wants to go back to [place]. Objective Vital signs: Temperature 96.5 F L 06/29/17 11:10 Pulse Rate 77 06/29/17 11:10 Respiratory Rate 20 06/29/17 12:10 Blood Pressure 131/71 06/29/17 11:10 Pulse Oximetry 98 06/29/17 11:10 Height/Weight/BMI: Height 1.68 m Weight 84.5 kg Body Mass Index 31.6 - Constitutional Present: no acute distress, well nourished, well developed - Routine HEENT Exam Head: Present: normocephalic, atraumatic - Routine Respiratory Exam Present: CTA bilaterally. Absent: wheezes - Routine Cardiovascular Exam Present: RRR - Routine Abdominal Exam Present: soft, non distended, non tender - Routine Extremities Exam Present: edema (tr), normal capillary refill - Routine Skin Exam Present: dry, warm - Routine Neurological Exam Present: alert, tremors (padma L side) - Routine Lymphatic Exam Lymphatic: Absent: adenopathy - Routine Psychiatric Exam Present: normal affect, cooperative Results - Labs CBC & Chem 7: 06/23/17 07:45 06/25/17 06:43 Microbiology Results: Microbiology 06/20/17 21:44 Urine, Voided (Cc/notcc) Urine Culture - Final Escherichia coli Assessment and Plan Assessment and Plan: Assessment: Psychosis with acute delirium and paranoia. Hypernatremia, present on admission. - resolved Dementia. Parkinson's disease. Urinary incontinence. Generalized weakness. Chronic pain. Allergic rhinitis. Hypothyroidism. Hypotension. Major depressive disorder. Seborrheic dermatitis. Insomnia. Paralysis agitans. Plan Overall appears medically stable. Psych notes, nurses notes, VSS's and labs reviewed. Lasix remains on hold. Not clear why patient is taking this. No recent weight. Will check weights and continue to follow. Sinemet DC'd on admission due to psychosis. No changes at this time. - Physician Narrative Narrative: Date: 06/29/17 Time: 1603 Hospital Course Summary Disclaimer: The visit summary below is not to be considered part of the above Progress Note. Hospital Course: Plan - 06/17/17: Agree with admission to [facility] for further psychiatric care per Dr. Reed and team. Hospitalist service consulted for medical management. Provide safe and supportive environment. Evaluation in ED revealed hypernatremia (Na 148). Encourage oral intake. Will recheck on 06/18/17. Slightly elevated TSH at 5.12. Possibly due to patient refusing meds. Recommend continuing to monitor as outpatient with recheck in 4-6 weeks. Continue home Synthroid. Continue home medications. Monitor blood pressure closely. Recheck labs periodically throughout admission to monitor blood counts, electrolytes and renal function. Upon discharge, patient's care will be returned to her PCP, Dr. Matta. Patient is a DNR code. 06/18/17 Psych: Agreed upon following plan with son/DPOA: Discontinue home Seroquel, Nuplazid. Restart Ativan 1mg PO TID for catatonia. If patient refuses PO, to be given IM. Encourage PO nutrition. Will start clozapine 25mg PO q HS. Will order EKG as well. 06/19/17 Psych- Tolerating meds. Continue current care 06/20/17 Psych- Pt remains hypersomnolent and non verbal. Refusing meds 06/20/17: Patient continues to appear a bit dehydrated on labs. Will repeat labs in AM. May need some IVF. Hold Lasix for now. Fairly severe chronic tremor notes. She is c/o a runny nose, but does not appear ill. Malodorous urine is reported. Repeat UA. Will need repeat TSH as an outpt. 06/22/17 Psych: Continue Ativan 1mg PO TID (to be given IM if patient refuses - reeducated nursing staff on that it MUST be given to patient). Increase clozaril to 25mg PO BID to target psychosis. Catatonia slowly improving. 06/23/17 Psych: Continue current care; catatonia is improving. Will likely increase clozaril on 06/24. 06/24/17 Psych: Increase Clozaril to 25mg PO q AM, 50mg PO q HS. Last labs on 06/23 ; WBC WNL. 06/25/17 Psych: Continue current care. Plan to repeat labs on or before 06/30, including TSH. 06/26/17 psych note- Continue current carre 06/27/17 Psych note- Continue current care. 06/28/17 Psych: Begin Ativan taper. Decrease Ativan to 0.5mg PO BID (in AM and afternoon) and continue 1mg PO q HS. Monitor for any re-emerging symptoms of catatonia. 06/29/17 Psych: Will decrease Ativan to 0.5mg PO q AM and 1mg PO q HS on 06/30. 06/29/17 - hospitalist. Overall appears medically stable. Psych notes, nurses notes, VSS's and labs reviewed. Lasix remains on hold. Not clear why patient is taking this. No recent weight. Will check weights and continue to follow. Sinemet DC'd on admission due to psychosis. No changes at this time.
[2017-06-29] MEDS: LORazepam 1 MG TABLET PO SCH ×2 (19:37→21:22)
[2017-06-30] MEDS: LEVOTHYROXINE 50 MCG TABLET PO SCH ×2 (06:05→10:21)
[2017-06-30] MEDS: BISACODYL 10 MG SUPPOSITORY RECTALLY SCH (10:20)
[2017-06-30] MEDS: SOLIFENACIN 5mg TABLET PO SCH (10:22)
[2017-06-30] MEDS: CloZAPine 25 MG TABLET PO SCH ×2 (10:22→20:36)
[2017-06-30] MEDS: LORazepam 0.5 MG TABLET PO SCH (10:23)
[2017-06-30] MEDS: LORazepam 1 MG TABLET PO SCH (20:36)
[2017-07-01] MEDS: BISACODYL 10 MG SUPPOSITORY RECTALLY SCH (10:27)
[2017-07-01] MEDS: CloZAPine 25 MG TABLET PO SCH ×2 (10:28→19:09)
[2017-07-01] MEDS: LEVOTHYROXINE 50 MCG TABLET PO SCH (10:28)
[2017-07-01] MEDS: SOLIFENACIN 5mg TABLET PO SCH (10:28)
--- NOTE | 2017-07-01 13:14 | Neuropsych Progress Note ---
[facility] Subjective Date: 07/01/17 - Sujective/Severity of Illness Medications: Acetaminophen (Tylenol) 650 mg PO Q4H PRN PRN Reason: Pain Last Admin: 06/17/17 02:16 Dose: 650 mg Al Hydroxide/Mg Hydroxide (Maalox Plus) 30 ml PO TID PRN PRN Reason: Indigestion Bisacodyl (Dulcolax) 10 mg RECTALLY DAILY [facility] Last Admin: 07/01/17 10:27 Dose: Not Given Clozapine (Clozaril) 25 mg PO DAILY [facility] Last Admin: 07/01/17 10:28 Dose: 25 mg Clozapine (Clozaril) 50 mg PO HS [facility] Last Admin: 06/30/17 20:36 Dose: 50 mg Docusate Sodium (Colace) 100 mg PO BID PRN PRN Reason: Constipation Furosemide (Lasix 20 Mg Tab) 20 mg PO DAILY [facility] Last Admin: 06/20/17 10:54 Dose: Not Given Levothyroxine Sodium (Synthroid) 50 mcg PO ACB [facility] Last Admin: 07/01/17 10:28 Dose: Not Given Lorazepam (Ativan) 0.5 mg PO Q6H PRN PRN Reason: Extreme agitation Last Admin: 06/17/17 02:16 Dose: 0.5 mg Lorazepam (Ativan Inj) 0.5 mg IM Q6H PRN PRN Reason: Extreme agitation Lorazepam (Ativan) 1 mg PO HS [facility] Last Admin: 06/30/17 20:36 Dose: 1 mg Magnesium Hydroxide (Mom) 30 ml PO Q12H PRN PRN Reason: Constipation Nystatin (Mycostatin) 1 applic TP BID [facility] Last Admin: 07/01/17 10:27 Dose: 1 applic Ondansetron HCl (Zofran Odt Tablet) 4 mg PO Q4H PRN PRN Reason: Nausea &/or vomiting Polyethylene Glycol (Miralax) 17 gm PO DAILY PRN PRN Reason: Constipation Solifenacin (Vesicare) 5 mg PO DAILY [facility] Last Admin: 07/01/17 10:28 Dose: 5 mg Subjective: Patient seen and chart reviewed. Case discussed with treatment team. On interview, patient is pleasant and reports she feels "good." She is very appreciative of the care provided by nursing staff here. She denies any physical complaints and says she feels less tired with most recent med changes. Patient denies any SI, HI or AVH. Patient denies any adverse side effects related to psychotropic medications. Nursing staff report patient has been pleasant and cooperative, with no significant behavioral problems. Patient has been adherent with medications. Patient slept 7.25 hours overnight. VSS. Appetite is fair. Psychotropic PRNs required in the past 24 hours: none. Start Time: 13:00 Stop Time: 13:20 Mental Status Exam Vitals: Last Vital Signs Temp 96.9 F 07/01/17 08:00 Pulse 77 07/01/17 08:00 Resp 18 07/01/17 08:00 BP 131/70 07/01/17 08:00 Pulse Ox 100 07/01/17 08:00 Height: 1.68 m Weight: 88.4 kg - Mental Status Exam Muscle Strength/Tone: Other (Parkinsonian) Dressing: Casual Grooming: Fair Attitude: Cooperative Motor Activity: Retardation, Tremors (in all extremities, decreased in intensity from admission) Eye Contact: Poor Speech: Slowed Volume: Soft Rhythm: Mumbled (significantly clearer than upon admission) Orientation: Oriented to person, Oriented to place, Oriented to time Mood: Euthymic Affect: Relaxed, Blunted (masked facies) Rate of Thoughts: Delayed Thought Organization: Organized (mostly), [place] Associations: Intact (mostly) Abstract Reasoning: Impaired, concrete Thought Content: Other (No abnormal thought content elicited on interview) Perception/Psychotic: Hx psychosis, not current Language: Other (Unclear) Fund of Knowledge: Poor fund of knowledge Memory: Poor-immediate, Poor-recent Suicidal Ideation: Denies Homicidal Ideation: Denies Insight: Impaired Judgement: Impaired Impulse Control: Fair - Laboratory Result Diagrams: 06/23/17 07:45 06/25/17 06:43 Assessment and Plan (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 Patient is now getting Ativan 0.5mg PO q AM and 1mg PO q HS which should be slowly tapered now that catatonia has resolved. Hospital Course Summary Disclaimer: The visit summary below is not to be considered part of the above Progress Note. Hospital Course: Plan - 06/17/17: Agree with admission to [facility] for further psychiatric care per Dr. Reed and team. Hospitalist service consulted for medical management. Provide safe and supportive environment. Evaluation in ED revealed hypernatremia (Na 148). Encourage oral intake. Will recheck on 06/18/17. Slightly elevated TSH at 5.12. Possibly due to patient refusing meds. Recommend continuing to monitor as outpatient with recheck in 4-6 weeks. Continue home Synthroid. Continue home medications. Monitor blood pressure closely. Recheck labs periodically throughout admission to monitor blood counts, electrolytes and renal function. Upon discharge, patient's care will be returned to her PCP, Dr. Matta. Patient is a DNR code. 06/18/17 Psych: Agreed upon following plan with son/DPOA: Discontinue home Seroquel, Nuplazid. Restart Ativan 1mg PO TID for catatonia. If patient refuses PO, to be given IM. Encourage PO nutrition. Will start clozapine 25mg PO q HS. Will order EKG as well. 06/19/17 Psych- Tolerating meds. Continue current care 06/20/17 Psych- Pt remains hypersomnolent and non verbal. Refusing meds 06/20/17: Patient continues to appear a bit dehydrated on labs. Will repeat labs in AM. May need some IVF. Hold Lasix for now. Fairly severe chronic tremor notes. She is c/o a runny nose, but does not appear ill. Malodorous urine is reported. Repeat UA. Will need repeat TSH as an outpt. 06/22/17 Psych: Continue Ativan 1mg PO TID (to be given IM if patient refuses - reeducated nursing staff on that it MUST be given to patient). Increase clozaril to 25mg PO BID to target psychosis. Catatonia slowly improving. 06/23/17 Psych: Continue current care; catatonia is improving. Will likely increase clozaril on 06/24. 06/24/17 Psych: Increase Clozaril to 25mg PO q AM, 50mg PO q HS. Last labs on 06/23 ; WBC WNL. 06/25/17 Psych: Continue current care. Plan to repeat labs on or before 06/30, including TSH. 06/26/17 psych note- Continue current carre 06/27/17 Psych note- Continue current care. 06/28/17 Psych: Begin Ativan taper. Decrease Ativan to 0.5mg PO BID (in AM and afternoon) and continue 1mg PO q HS. Monitor for any re-emerging symptoms of catatonia. 06/29/17 Psych: Will decrease Ativan to 0.5mg PO q AM and 1mg PO q HS on 06/30. 06/29/17 - hospitalist. Overall appears medically stable. Psych notes, nurses notes, VSS's and labs reviewed. Lasix remains on hold. Not clear why patient is taking this. No recent weight. Will check weights and continue to follow. Sinemet DC'd on admission due to psychosis. No changes at this time. 07/02/17 Psych: Will recheck labs today (on Clozaril) and plan to discharge back to facility on 07/02. Patient is now getting Ativan 0.5mg PO q AM and 1mg PO q HS which should be slowly tapered now that catatonia has resolved.
--- NOTE | 2017-07-01 13:49 | Extended Care Facility Orders ---
Admission Orders Admit to:: [facility] Allergies/Adverse Reactions: Allergies codeine Allergy (Unknown, Verified 06/16/17 10:20) mirtazapine [From Remeron] Allergy (Unknown, Verified 06/16/17 10:20) pramipexole [From Mirapex] Allergy (Unknown, Verified 06/16/17 10:20) Sulfa (Sulfonamide Antibiotics) Allergy (Unknown, Verified 06/16/17 10:20) Admitting Diagnosis: Psychosis Admitting Physician: Nany Reed MD Attending Physician: Nany Reed MD Code Status: Do Not Resuscitate Anticiapted Length of Stay: greater than 30 days Rehab Potential: fair Rehab Prognosis: fair Diet: 06/16/17 Dinner Regular Diet [DIET] Diet Modifications: May use Facility Protocol or Standing Orders: Yes May have flu vaccine: Yes Evaluations/Treatment: [facility] Certification: I certify that SNF services are required to be given on an Inpatient basis because of the patients need for custodial care on a continuing basis for the condition(s) for which he/she received inpatient hospital services prior to his/her transfer to the SNF. SNF inpatient care is necessary for the following reasons Indication for Penitentiary: Not Applicable - Additional Information In Event of Arrest: Do Not Start CPR Resident is Aware of Diagnosis: Yes Referrals: Cassandra Matta MD [Primary Care Provider] - (Dr. Lamberto Matta will see patient on rounds at the facility for Hosp. follow-up. . ) Kennedy Hernandez DO [Physician] - (Dr. Orquidea Hernandez on 08/02/17 at 1:00 for Mental Health follow-up. [facility] [address] [place] [address])
[2017-07-01] MEDS: LORazepam 1 MG TABLET PO SCH (19:09)
[2017-07-02] MEDS: CloZAPine 25 MG TABLET PO SCH ×2 (02:13→09:58)
[2017-07-02] MEDS: LORazepam 1 MG TABLET PO SCH (02:14)
[2017-07-02] MEDS: BISACODYL 10 MG SUPPOSITORY RECTALLY SCH (09:58)
[2017-07-02] MEDS: LEVOTHYROXINE 50 MCG TABLET PO SCH (09:58)
[2017-07-02] MEDS: SOLIFENACIN 5mg TABLET PO SCH (09:59)
[2017-07-02 10:17] VITALS: BP 129/67; PULSE 79; RESP 16; TEMP 97.4; O2SAT 99
--- NOTE | 2017-07-02 10:33 | Progress Note ---
- Date 07/02/17 Subjective: Lucia is seen today in follow up. She is feeling well. Denies any pain or other concerns. Is to return to [facility] today. Objective Vital signs: Temperature 97.4 F 07/02/17 08:00 Pulse Rate 79 07/02/17 08:00 Respiratory Rate 16 07/02/17 08:00 Blood Pressure 129/67 07/02/17 08:00 Pulse Oximetry 99 07/02/17 08:00 Height/Weight/BMI: Height 1.68 m Weight 88 kg Body Mass Index 31.6 - Constitutional Present: no acute distress, mild distress - Routine HEENT Exam Head: Present: normocephalic, atraumatic Eye: Present: EOMI, PERRL - Routine Respiratory Exam Present: CTA bilaterally. Absent: rales, rhonchi, wheezes - Routine Cardiovascular Exam Present: RRR, S1, S2 - Routine Abdominal Exam Present: soft, normoactive bowel sounds, non distended, non tender - Routine Extremities Exam Present: non tender - Routine Musculoskeletal Exam Musculoskeletal: Present: moving extremities well - Routine Skin Exam Present: intact, dry, warm - Routine Neurological Exam Present: alert, moving all extremities - Routine Psychiatric Exam Present: cooperative Results - Labs CBC & Chem 7: 07/01/17 13:58 07/01/17 13:58 Microbiology Results: Microbiology 06/20/17 21:44 Urine, Voided (Cc/notcc) Urine Culture - Final Escherichia coli Assessment and Plan (1) Dementia Current visit: Yes Status: Acute Assessment and Plan: Assessment: Psychosis with acute delirium and paranoia. Hypernatremia, present on admission. - resolved Dementia. Parkinson's disease. Urinary incontinence. Generalized weakness. Chronic pain. Allergic rhinitis. Hypothyroidism. Hypotension. Major depressive disorder. Seborrheic dermatitis. Insomnia. Paralysis agitans. Plan 07/02/17 She appears well today and plans to dismiss back to facility. She has continued to have hypernatremia, so we will continue to DC the home Furosemide. She did demonstrate and E.Coli UTI, delgadillo-sensitive. She was treated with 3 days of Ceftriaxone, completed 06/23/17. Will need recheck of TSH in the next 2-4 weeks. Recommend follow up with PCP, Dr. Matta in the next week. Resuscitation Status: Do Not Resuscitate - Physician Narrative Narrative: Date: 07/02/17 Time: 1029 Hospital Course Summary Disclaimer: The visit summary below is not to be considered part of the above Progress Note. Hospital Course: Plan - 06/17/17: Agree with admission to [facility] for further psychiatric care per Dr. Reed and team. Hospitalist service consulted for medical management. Provide safe and supportive environment. Evaluation in ED revealed hypernatremia (Na 148). Encourage oral intake. Will recheck on 06/18/17. Slightly elevated TSH at 5.12. Possibly due to patient refusing meds. Recommend continuing to monitor as outpatient with recheck in 4-6 weeks. Continue home Synthroid. Continue home medications. Monitor blood pressure closely. Recheck labs periodically throughout admission to monitor blood counts, electrolytes and renal function. Upon discharge, patient's care will be returned to her PCP, Dr. Matta. Patient is a DNR code. 06/18/17 Psych: Agreed upon following plan with son/DPOA: Discontinue home Seroquel, Nuplazid. Restart Ativan 1mg PO TID for catatonia. If patient refuses PO, to be given IM. Encourage PO nutrition. Will start clozapine 25mg PO q HS. Will order EKG as well. 06/19/17 Psych- Tolerating meds. Continue current care 06/20/17 Psych- Pt remains hypersomnolent and non verbal. Refusing meds 06/20/17: Patient continues to appear a bit dehydrated on labs. Will repeat labs in AM. May need some IVF. Hold Lasix for now. Fairly severe chronic tremor notes. She is c/o a runny nose, but does not appear ill. Malodorous urine is reported. Repeat UA. Will need repeat TSH as an outpt. 06/22/17 Psych: Continue Ativan 1mg PO TID (to be given IM if patient refuses - reeducated nursing staff on that it MUST be given to patient). Increase clozaril to 25mg PO BID to target psychosis. Catatonia slowly improving. 06/23/17 Psych: Continue current care; catatonia is improving. Will likely increase clozaril on 06/24. 06/24/17 Psych: Increase Clozaril to 25mg PO q AM, 50mg PO q HS. Last labs on 06/23 ; WBC WNL. 06/25/17 Psych: Continue current care. Plan to repeat labs on or before 06/30, including TSH. 06/26/17 psych note- Continue current carre 06/27/17 Psych note- Continue current care. 06/28/17 Psych: Begin Ativan taper. Decrease Ativan to 0.5mg PO BID (in AM and afternoon) and continue 1mg PO q HS. Monitor for any re-emerging symptoms of catatonia. 06/29/17 Psych: Will decrease Ativan to 0.5mg PO q AM and 1mg PO q HS on 06/30. 06/29/17 - hospitalist. Overall appears medically stable. Psych notes, nurses notes, VSS's and labs reviewed. Lasix remains on hold. Not clear why patient is taking this. No recent weight. Will check weights and continue to follow. Sinemet DC'd on admission due to psychosis. No changes at this time. 07/02/17 Psych: Will recheck labs today (on Clozaril) and plan to discharge back to facility on 07/02. Patient is now getting Ativan 0.5mg PO q AM and 1mg PO q HS which should be slowly tapered now that catatonia has resolved. 07/02/17 She appears well today and plans to dismiss back to facility. She has continued to have hypernatremia, so we will continue to DC the home Furosemide. She did demonstrate and E.Coli UTI, delgadillo-sensitive. She was treated with 3 days of Ceftriaxone, completed 06/23/17. Will need recheck of TSH in the next 2-4 weeks. Recommend follow up with PCP, Dr. Matta in the next week.
== END 2017-07-02 13:20 | DRG 885 ==
LOC: ED 09:46 → GEN 13:36
PROVIDERS: ADMIT Psychiatry & Neurology Psychiatry; ATTEND Psychiatry & Neurology Psychiatry